=== PATIENT | female | born 1935 | race Caucasian/White ===

== ENCOUNTER 2020-01-05 16:31 | Emergency (ER) | payer OTHER, MEDICARE ==
[2020-01-05 18:02] LABS: Absolute Lymphocytes (CBC) 1.8 K/uL (0.7-4.9); Basophils % 4.3 % (0-1.3); Hematocrit 19.9 % (36.0-45.0); Lymphocytes % 21.9 % (15.3-44.8); MPV 8.6 fL (7.6-11.3); RBC Red Blood Cell Count 2.61 M/uL (3.86-4.86)
[2020-01-05 18:06] LABS: Protime INR 1.05
[2020-01-05 18:14] LABS: Potassium 4.1 mmol/L (3.5-5.1)
--- NOTE | 2020-01-05 18:41 | EDPHYS ---
Physician Documentation [facility] Name: Kiana Walters Age: 84 yrs Sex: Female : 1935 Arrival Date: 01/05/2020 Time: 16:32 Bed 25 Private MD: ED Physician Rey Matthews HPI: 01/04 17:15 This 84 yrs old Female presents to ER via Wheelchair with complaints of Low rn Blood Count. 17:[address] Crawley for low hemoglobin, states followed by hematology for rn platelet problem, takes hydroxyurea, reports a couple of weeks of dyspnea on exertion, fatigue, and decreased energy. No blood in stool or dark stool. No recent change in medication. . Historical: - Allergies: 16:57 Codeine; em 16:57 Demerol; em 16:57 PENICILLINS; em - PMHx: 16:57 Atrial Fib; Cataracts; High Cholesterol; high platelet levels; Hypertension; em Hypothyroidism; liver fibrosis; sciatic pain; - PSHx: 16:57 Adenoids; Tonsillectomy; Appendectomy; Cholecystectomy; Hysterectomy; neck surgery; em carotid artery stent; knee replacement; cataracts; - Immunization history:: Adult Immunizations up to date. - Social history:: Smoking status: Patient denies any tobacco usage or history of. - Family history:: not pertinent. - Hospitalizations: : No recent hospitalization is reported. ROS: 17:15 Constitutional: Negative for fever, chills, and weight loss, Eyes: Negative for injury, rn pain, redness, and discharge, Neck: Negative for injury, pain, and swelling, Cardiovascular: Negative for chest pain, palpitations, and edema, Respiratory: Negative for cough, wheezing, and pleuritic chest pain, Abdomen/GI: Negative for abdominal pain, nausea, vomiting, diarrhea, and constipation, Back: Negative for injury and pain, MS/Extremity: Negative for injury and deformity, Skin: Negative for injury, rash, and discoloration, Neuro: Negative for headache, numbness, tingling, and seizure. Exam: 17:15 Constitutional: This is a well developed, well nourished patient who is awake, alert, rn and in no acute distress. Head/Face: Normocephalic, atraumatic. Eyes: Pale conjunctivae Cardiovascular: Regular rate and rhythm. No pulse deficits. Respiratory: Speaking full sentences. No increased work of breathing, no retractions or nasal flaring. Abdomen/GI: soft, non-tender Skin: Warm, dry MS/ Extremity: Pulses equal, no cyanosis. Neurovascular intact. Full, normal range of motion. Equal circumference. Neuro: Awake and alert, GCS 15 Vital Signs: 16:52 BP 134 / 62; Pulse 99; Resp 18; Temp 98.9(O); Pulse Ox 98% on R/A; Weight 78.93 kg; em Height 5 ft. 6 in. (167.64 cm); Pain 0/10; 17:30 BP 148 / 71; Pulse 90; Resp 18; Temp 98.3(TE); Pulse Ox 99% on R/A; Pain 0/10; ks7 18:28 BP 152 / 83; Pulse 91; Resp 18; Temp 98.3(TE); Pulse Ox 97% on R/A; Pain 0/10; ks7 19:11 BP 166 / 90; Pulse 96; Resp 18; Temp 98.2(TE); Pulse Ox 99% on R/A; Pain 0/10; ks7 19:36 BP 169 / 80; Pulse 95; Resp 18; Temp 98.2(TE); Pulse Ox 100% ; Pain 0/10; ks7 20:00 BP 170 / 86; Pulse 95; Resp 18; Temp 98.3(TE); Pulse Ox 98% on R/A; Pain 0/10; ks7 21:11 BP 148 / 69; Pulse 103; Resp 18; Temp 99.1(TE); Pulse Ox 100% on R/A; Pain 0/10; ks7 21:17 BP 161 / 72; Pulse 95; Resp 18; Temp 98.9(TE); Pulse Ox 100% on R/A; Pain 0/10; ks7 21:23 BP 159 / 81; Pulse 93; Resp 17; Temp 98.2(TE); Pulse Ox 100% on R/A; Pain 0/10; ks7 21:28 BP 158 / 72; Pulse 91; Resp 15; Temp 98.1(TE); Pulse Ox 100% on R/A; Pain 0/10; ks7 22:06 BP 171 / 76; Pulse 88; Resp 16; Temp 98.6(TE); Pulse Ox 99% on R/A; Pain 0/10; ks7 22:30 BP 160 / 79; Pulse 86; Resp 16; Temp 98.6(TE); Pulse Ox 97% on R/A; Pain 0/10; ks7 22:48 BP 133 / 61; Pulse 86; Resp 18; Temp 98.2(TE); Pulse Ox 99% on R/A; Pain 0/10; ks7 16:52 Body Mass Index 28.08 (78.93 kg, 167.64 cm) em 21:11 initial vitals pre transfusion start ks7 21:17 PRBC infusing ks7 21:23 PRBC infusing, no s/s of infusion reaction ks7 21:28 PRBC infusing. no s/s of adverse reaction. Infusion rate increased to 150 ml/hr ks7 MDM: 17:03 Patient medically screened. rn 18:38 ED course: Pt with hemoccult + stool, spoke with Dr. Crawley, states wants patient rn admitted for further anemia w/u and to rule out bleeding given iron deficiency anemia, and thinks hydroxyurea potentiating the anemia, sees dr li but have called several times including home phone and no answer. Will have to transfer given hemoccult + stool and low hemoglobin with symptomatic anemia. . 19:37 Data reviewed: vital signs, nurses notes, lab test result(s), EKG. Data interpreted: jr8 Pulse oximetry: on room air is 100 %. Interpretation: normal. Counseling: I had a detailed discussion with the patient and/or guardian regarding: the historical points, exam findings, and any diagnostic results supporting the discharge/admit diagnosis, lab results, the need to transfer to another facility, [facility] does not immediately have the required specialist. ED course: Talked to a Dr. Mares at [facility] who accepted patient . 01/04 17:13 Order name: CBC with Diff rn 01/04 17:13 Order name: Basic Metabolic Panel; Complete Time: 18:23 rn 01/04 17:13 Order name: Type And Screen rn 01/04 17:13 Order name: PT-INR; Complete Time: 18:57 rn 01/04 17:13 Order name: Ptt, Activated; Complete Time: 18:57 rn 01/04 17:13 Order name: IV Start; Complete Time: 17:59 rn 01/04 18:45 Order name: Bb Add On ss 01/04 18:59 Order name: Packed RBCs (Additional Unit) EDMD 01/04 22:23 Order name: Manual Differential EDMD Administered Medications: No medications were administered Point of Care Testing: Guaiac: 18:38 Stool Guaiac: Positive; Stool Hemoccult Control: Pass; rn Disposition: 01/05 07:07 Co-signature as Attending Physician, Rey Matthews MD. rn Disposition: 01/05/20 18:[address] [facility]. Diagnosis are Anemia, unspecified, Gastrintestinal bleed. - Reason for transfer: Higher level of care. - Accepting physician is . - Condition is Stable. - Problem is an ongoing problem. - Symptoms are unchanged. Signatures: Dispatcher [employer] [facility] Melchor Downey RN RN em Nieto, Roman, MD MD rn Roszak, Josh, PA PA jr8 Brooklyn Saha RN RN ks7 Corrections: (The following items were deleted from the chart) 01/04 22: 18:19 CBC Smear Scan ordered. EDMD EDMD 23:01 18:40 01/05/2020 18:[address] [facility]. ks7 Diagnosis is Anemia, unspecified; Gastrintestinal bleed. Reason for transfer: Higher level of care. Accepting physician is . Condition is Stable. Problem is an ongoing problem. Symptoms are unchanged. rn
--- NOTE | 2020-01-05 18:41 | ER ---
Nurse's Notes [facility] Name: Kiana Walters Age: 84 yrs Sex: Female : 1935 Arrival Date: 01/05/2020 Time: 16:32 Bed 25 Private MD: Diagnosis: Anemia, unspecified;Gastrintestinal bleed Presentation: 01/04 16:52 Chief complaint: Patient states: cancer doctor called and told pt to come to the ER for em low blood count, to be admitted for blood transfusions, HGB of 5, reports shortness of breath, weak, and no energy. Coronavirus screen: Patient denies a cough. Patient reports shortness of breath or difficulty breathing. Patient denies measured and/or subjective temperature greater than 100.4F prior to today's visit. Patient denies travel on a cruise ship or to a country the [facility] currently lists as an affected area. Patient denies contact with known and/or suspected case of COVID-19. Ebola Screen: Patient negative for fever greater than or equal to 101.5 degrees Fahrenheit, and additional compatible Ebola Virus Disease symptoms Patient denies exposure to infectious person. Patient denies travel to an Ebola-affected area in the 21 days before illness onset. No symptoms or risks identified at this time. Initial Sepsis Screen: Does the patient meet any 2 criteria? HR > 90 bpm. No. Patient's initial sepsis screen is negative. Does the patient have a suspected source of infection? No. Patient's initial sepsis screen is negative. Risk Assessment: Do you want to hurt yourself or someone else? Patient reports no desire to harm self or others. Onset of symptoms was January 05, 2020. 16:52 Method Of Arrival: Wheelchair em 16:52 Acuity: EZRA 3 em Triage Assessment: 17:30 General: Appears in no apparent distress. pt sent in by PCP for Low H/H. pt denies ks7 dizziness at this time. Behavior is calm, cooperative. 17:57 Pain: Denies pain. ks7 Historical: - Allergies: 16:57 Codeine; em 16:57 Demerol; em 16:57 PENICILLINS; em - PMHx: 16:57 Atrial Fib; Cataracts; High Cholesterol; high platelet levels; Hypertension; em Hypothyroidism; liver fibrosis; sciatic pain; - PSHx: 16:57 Adenoids; Tonsillectomy; Appendectomy; Cholecystectomy; Hysterectomy; neck surgery; em carotid artery stent; knee replacement; cataracts; - Immunization history:: Adult Immunizations up to date. - Social history:: Smoking status: Patient denies any tobacco usage or history of. - Family history:: not pertinent. - Hospitalizations: : No recent hospitalization is reported. Screenin:09 Abuse screen: Denies threats or abuse. Denies injuries from another. Nutritional ks7 screening: No deficits noted. Tuberculosis screening: No symptoms or risk factors identified. Fall Risk Fall in past 12 months (25 points). Secondary diagnosis (15 points) IV access (20 points). Ambulatory Aid- Crutches/Cane/Walker (15 pts). Gait- Normal/Bed Rest/Wheelchair (0 pts) Mental Status- Oriented to own ability (0 pts). Total Lynch Fall Scale indicates High Risk Score (45 or more points). Fall prevention measures have been instituted. Side Rails Up X 2 Placed Close to Nursing Station Frequent Obs/Assessments Occuring As available patient and family educated on Fall Prevention Program and Strategies. Assessment: 18:09 General: Appears pt comes in d/t pcp notifiying pt of abnormal labs. H/H low. pt denies ks7 dizziness or pain, no s/s of distress. 19:10 Reassessment: Patient is alert, oriented x 3, equal unlabored respirations, skin ks7 warm/dry/pink. talking on phone with daughter updating on plan of care to transfer to [facility]. 20:13 Reassessment: Patient and/or family updated on plan of care and expected duration. Pain ks7 level reassessed. Patient is alert, oriented x 3, equal unlabored respirations, skin warm/dry/pink. 21:36 Reassessment: Patient is alert, oriented x 3, equal unlabored respirations, skin ks7 warm/dry/pink. Patient denies pain at this time. 22:58 Reassessment: report given to medics for transport to [facility]. ks7 Vital Signs: 16:52 BP 134 / 62; Pulse 99; Resp 18; Temp 98.9(O); Pulse Ox 98% on R/A; Weight 78.93 kg; em Height 5 ft. 6 in. (167.64 cm); Pain 0/10; 17:30 BP 148 / 71; Pulse 90; Resp 18; Temp 98.3(TE); Pulse Ox 99% on R/A; Pain 0/10; ks7 18:28 BP 152 / 83; Pulse 91; Resp 18; Temp 98.3(TE); Pulse Ox 97% on R/A; Pain 0/10; ks7 19:11 BP 166 / 90; Pulse 96; Resp 18; Temp 98.2(TE); Pulse Ox 99% on R/A; Pain 0/10; ks7 19:36 BP 169 / 80; Pulse 95; Resp 18; Temp 98.2(TE); Pulse Ox 100% ; Pain 0/10; ks7 20:00 BP 170 / 86; Pulse 95; Resp 18; Temp 98.3(TE); Pulse Ox 98% on R/A; Pain 0/10; ks7 21:11 BP 148 / 69; Pulse 103; Resp 18; Temp 99.1(TE); Pulse Ox 100% on R/A; Pain 0/10; ks7 21:17 BP 161 / 72; Pulse 95; Resp 18; Temp 98.9(TE); Pulse Ox 100% on R/A; Pain 0/10; ks7 21:23 BP 159 / 81; Pulse 93; Resp 17; Temp 98.2(TE); Pulse Ox 100% on R/A; Pain 0/10; ks7 21:28 BP 158 / 72; Pulse 91; Resp 15; Temp 98.1(TE); Pulse Ox 100% on R/A; Pain 0/10; ks7 22:06 BP 171 / 76; Pulse 88; Resp 16; Temp 98.6(TE); Pulse Ox 99% on R/A; Pain 0/10; ks7 22:30 BP 160 / 79; Pulse 86; Resp 16; Temp 98.6(TE); Pulse Ox 97% on R/A; Pain 0/10; ks7 22:48 BP 133 / 61; Pulse 86; Resp 18; Temp 98.2(TE); Pulse Ox 99% on R/A; Pain 0/10; ks7 16:52 Body Mass Index 28.08 (78.93 kg, 167.64 cm) em 21:11 initial vitals pre transfusion start ks7 21:17 PRBC infusing ks7 21:23 PRBC infusing, no s/s of infusion reaction ks7 21:28 PRBC infusing. no s/s of adverse reaction. Infusion rate increased to 150 ml/hr ks7 Vitals: 19:36 Cardiac Rhythm Assessment Regular. ks7 ED Course: 16:32 Patient arrived in ED. bp1 16:56 Triage completed. em 16:57 Arm band placed on. em 17:03 Rey Matthews MD is Attending Physician. rn 17:19 Brooklyn Saha RN is Primary Nurse. ks7 17:35 No apparent distress. ks7 17:35 Patient has correct armband on for positive identification. Placed in gown. Bed in low ks7 position. Call light in reach. Side rails up X2. 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 ks7 17:59 Ptt, Activated Sent. ks7 17:59 PT-INR Sent. ks7 17:59 Type And Screen Sent. ks7 17:59 Basic Metabolic Panel Sent. ks7 17:59 CBC with Diff Sent. ks7 17:59 Inserted saline lock: 20 gauge in right antecubital area, using aseptic technique. ks7 Blood collected. 18:00 Inserted saline lock: 20 gauge in right wrist, using aseptic technique. ks7 18:28 ED physician to see patient. ED MD discussed plan of care with pt. attempting to call ks7 pt GI MD. if we can't get hold of MD pt will need to transfer to [place]. 18:52 pt ambulated with cane to bathroom, steady on feet. ks7 18:54 Bb Add On Sent. ks7 19:10 ambulated back to room with cane, steady on feet. ks7 19:37 Resting quietly. talking on the phone talking to her friends and family updating on ks7 plan of care. 19:52 transfer Awaiting: pt will transfer after 1 unit of PRBC infuses. waiting for blood ks7 bank to prepare PRBC's. 20:19 pt ambulated to bathroom and back to bed with cane. steady on feet, denies dizziness. ks7 dyspnea on exertion. 20:26 pt eating turkey sandwich, fruit and water. denies nausea. ks7 20:30 Diet: Patient given snack. ks7 22:08 pt ambulated to bathroom with cane. steady on feet, no s/s of distress, denies ks7 dizziness. sob with walking. 22:58 Report given to EMS transport. Report given to Vicky GUERRA at [facility]. all questions ks7 answered. 23:00 Patient transferred, IV remains in place. ks7 23:01 Packed RBCs (Additional Unit) Sent. ks7 Administered Medications: No medications were administered Point of Care Testing: Guaiac: 18:38 Stool Guaiac: Positive; Stool Hemoccult Control: Pass; rn Outcome: 18:40 ER care complete, transfer ordered by . rn 22:58 Transferred by ground EMS to [facility]. ks7 22:58 Condition: good 22:58 Discharge instructions given to patient, Instructed on the need for transfer, Demonstrated understanding of instructions. 23:01 Patient left the ED. ks7 Signatures: Melchor Downey RN RN em Nieto, Roman, MD MD rn Paniauga, Brittany bp1 Songcuan, Kathleen, RN RN ksYoni Corrections: (The following items were deleted from the chart) 20:24 20:00 BP 145 / 73; Pulse 75bpm; Resp 18bpm; Pulse Ox 94%; Temp 100.3F Temporal; Pain ks7 0/10; ks7 21:36 21:17 BP 159 / 81; Pulse 93bpm; Resp 17bpm; Pulse Ox 100% RA; Temp 98.2F Temporal; Pain ks7 0/10; PRBC infusing, no s/s of infusion reaction; ks7 22:23 18:55 CBC Smear Scan drawn and sent. ks7 EDMS
--- OUTSIDE RECORDS SUMMARY | 2020-01-05 18:53 | XMS REPORT | Continuity of Care Document ---
:1935 Author Organization [facility] t Address [address] [place] [address] Care Team Providers Name Role Phone Unavailable Unavailable Unavailable Problems Condition Condition Condition Status Onset Resolution Last Treating Co mments Source Name Details Category Date Date Treatment Clinician Date Urinary Urinary Diagnosis [facility] infection Lee dominique without without l hematuria, hematuria, Ou tpati site site ent unspecifie unspecifie Cl inics d d Urge Urge Diagnosis Active [facility] incontinen incontinen Alejandra kes - ce ce [facility] Allergies, Adverse Reactions, Alerts Allergy Allergy Status Severity Reaction(s) Onset Inactive Treating Comm ents Source Name Type Date Date Clinician PCN Adverse Active Info Not [facility] Reaction Available [facility] - [facility] Clinics Demerol Adverse Active Info Not [facility] Reaction Available [facility] - [facility] Clinics Medications Ordered Filled Start Stop Current Ordering Indication Dosage Frequency Signature Comments Components Source Medication Medication Date Date Medication? Clinician (SIG) Name Name Estradiol Estradiol Yes Lulu as [facility] [place] directed [facility] - 00:[facility]: [facility] 00 [facility] Multaq Multaq Yes Lulu [address] [facility] [place] with meals [facility] Levoxyl Levoxyl Yes Lulu [address] [facility] [place] on an [facility] - empty [facility]oria stomach in l the Outpati morning ent Clinics Amlodipine Amlodipine Yes Lulu [address] [facility] Besylate Besylate [place] [facility] - [facility] Lumigan Lumigan Yes Lulu [address] [facility] [place] into [facility] - affected [facility]oria eye in the l evening [facility] Plavix Plavix Yes Lulu [address] [facility] [place] [facility] Diovan HCT Diovan HCT Yes Lulu [address] [facility] [place] [facility] Gabapentin Gabapentin Yes Lulu [address] [facility] [place] [facility] T87-Vloizi Q19-Xnopat Yes Lulu as [facility] [place] [facility] Hydroxyurea Hydroxyurea Yes Lulu as [facility] [place] directed [facility] Melatonin Melatonin Yes Lulu as [facility] [place] directed [facility] CoQ-10 CoQ-10 Yes [facility]ulu [facility] with [facility] - meal [facility] Clin[facility] Aspirin 81 Aspirin 81 Yes Lulu [address] [facility] [place] [facility] Metoprolol Metoprolol Yes Lulu [address] Succinate Succinate [place] [facility] - [facility] Outpat[facility] ent Clinics Procedures This patient has no known procedures. Encounters Start End Encounter Admission Attending Care Care Encounter Source Date/Time Date/Time Type Type Clinicians Facility Department ID 2019-07-10 2019-07-10 Outpatient Bart Meredith [id number] [facility] 10:00:00 10:00:00 t Specialty/U Alejandra kes - Specialty rology [facility]rology [facility] l Clinic Outpati ent Clinics 2018-12-23 2018-12-23 Outpatient Bart Arriagat [id number] [facility] 10:15:00 10:15:00 t Specialty/U Alejandra kes - Specialty rology Mem[facility] /Urology Clinic l Clinic Outpati ent Clinics 2018-09-19 2018-09-19 Outpatient Bart [place] [id number] [facility] 10:30:00 10:30:00 t Specialty/U Alejandra kes - Specialty rology Memori a /Urology Clinic l Clinic Outpati ent Clinics 2018-08-22 2018-08-22 Outpatient Bart [place] [id number] [facility] 10:15:00 10:15:00 t Specialty/U Alejandra kes - Specialty rology Memori a /Urology Clinic l Clinic Outpati ent Clinics 2018-08-15 2018-08-15 Outpatient Bart [place] [id number] [facility] 10:15:00 10:15:00 t Specialty/U Alejandra kes - Specialty rology Memori a /Urology Clinic l Clinic Outpati ent Clinics Results This patient has no known results.
[2020-01-05] MEDS ORDERED: NA CHLORIDE 0.9% 250 ML ONE (20:52)
[2020-01-05 22:26] LABS: Blood Morphology Comment NOTED (NOT SEEN); Hypochromasia 1+; Platelet Estimate ADEQ; Polychromasia 2+
[2020-01-06 09:49] VITALS: BP 133/61; TEMP 98.2; O2SAT 99
== END 2020-01-05 23:01 | disposition short-term general hospital (02) ==
LOC: ER 16:31
DX: D64.9 Anemia, unspecified (principal); K92.2 Gastrointestinal hemorrhage, unspecified; Z88.6 Allergy status to analgesic agent; Z88.0 Allergy status to penicillin
CPT/HCPCS: 85025; 80048; 36415; 86900; 86850; 85610; 86901; 85730; 86922 ×2; 99285; P9016; J7050

== ENCOUNTER 2020-07-14 08:11 | Day surgery (SDC) | payer OTHER, MEDICARE ==
--- OUTSIDE RECORDS SUMMARY | 2020-07-14 08:44 | XMS REPORT | Clinical Summary ---
:1935 Author Organization [facility] Address [address] [place] [address] Care Team Providers Name Role Phone Pcp, Primary Care Provider Unavailable Allergies Active Allergy Reactions Severity Noted Date Comments Meperidine 01/06/2020 Penicillins 01/06/2020 Lidocaine Hcl 01/06/2020 Medications Medication Sig Dispensed Refills Start Date End Date Status clopidogreL Take 75 mg by 0 Acti ve (PLAVIX) 75 mg mouth daily. tablet valsartan-hydrochl Take 1 tablet 0 Active orothiazide by mouth (DIOVAN-HCT) daily. 320-12.5 mg per tablet metoprolol Take 25 mg by 0 Activ e tartrate mouth 2 (two) (LOPRESSOR) 25 MG times daily. tablet dronedarone Take 400 mg by 0 Act raji (MULTAQ) 400 mg mouth 2 (two) tablet times daily. levothyroxine Take 25 mcg by 0 A ctive (SYNTHROID, mouth Every LEVOTHROID) 25 MCG morning on an tablet empty stomach. amLODIPine Take 5 mg by 0 Active (NORVASC) 5 MG mouth daily. tablet hydroxyurea Take 100 mg by 0 Act raji (DROXIA) 500 mg mouth daily. capsule gabapentin Take 300 mg by 0 Acti ve (NEURONTIN) 300 MG mouth nightly. capsule pitavastatin Take 2 mg by 0 Acti ve calcium (LIVALO) 2 mouth daily. mg Tab tablet cyanocobalamin, Place 1 tablet 0 Active vitamin B-12, under the 2,500 mcg Subl tongue daily. aspirin 81 MG EC Take 81 mg by 0 Active tablet mouth daily. dorzolamide-timolo Place 1 drop 0 Active L (COSOPT) into the left 22.3-6.8 mg/mL eye 2 (two) ophthalmic times daily. solution bimatoprost Place 1 drop 0 Activ e (LUMIGAN) 0.03 % into both eyes ophthalmic drops nightly. MELATONIN ORAL Take by mouth 0 A ctive nightly. coenzyme Q10 (CO Take by mouth 0 Active Q-10) 300 mg Cap daily. beta-carotene,A,-v Take by mouth 0 Active its C,E/mins daily. (OCUVITE ORAL) pantoprazole Take 1 tablet 60 tablet 1 01/07/2020 Ac tive (PROTONIX) 40 MG (40 mg total) tablet by mouth 2 (two) times daily. ferrous sulfate Take 1 tablet 60 tablet 2 01/07/2020 Active 325 (65 FE) MG EC (325 mg total) 1 tablet by mouth 2 (two) times daily with breakfast and dinner. pantoprazole Take 1 tablet 60 tablet 0 01/07/2020 Di scontinued (PROTONIX) 40 MG (40 mg total) 0 (Reorder) tablet by mouth 2 (two) times daily. ferrous sulfate Take 1 tablet 60 tablet 2 01/07/2020 Discontinued 325 (65 FE) MG EC (325 mg total) 0 (Reorder) tablet by mouth 2 (two) times daily with breakfast and dinner. ferrous sulfate Take 1 tablet 60 tablet 2 01/07/2020 Discontinued 325 (65 FE) MG EC (325 mg total) 0 (Reorder) tablet by mouth 2 (two) times daily with breakfast and dinner. pantoprazole Take 1 tablet 60 tablet 1 01/07/2020 Di scontinued (PROTONIX) 40 MG (40 mg total) 0 (Reorder) tablet by mouth 2 (two) times daily. Active Problems Problem Noted Date Gastrointestinal hemorrhage with melena 01/06/2020 A-fib 01/06/2020 Anemia 01/06/2020 Thrombocytosis 01/06/2020 Encounters Date Type Specialty Care Team Description 01/07/2020 Anesthesia Event Gastroenterology Eduardo Quintana MD Sam, Briseida Miles MD 01/07/2020 Surgery Gastroenterology Юлия Barraza [facility] Roa MD 01/07/2020 Travel 01/06/2020 [facility] Internal [facility] Chronic a trial fibrillation (HCC); - Encounter Medicine , MD Miguel Gastrointestinal hemorrhage with melena; 01/07/2020 Judith Lau Thrombocytosis (HCC); MD Marie Iron deficiency anemia due to chronic bl ood loss Ariella Stringer MD Henderson, Edith Ifeoma, MD 01/06/2020 Travel 01/05/2020 Telephone Gastroenterology Юлия Barraza MD after 07/14/2019 Social History Tobacco Use Types Packs/Day Years Used Date Never Smoker Smokeless Tobacco: Never Used Alcohol Use Drinks/Week oz/Week Comments No Alcohol Habits Answer Date Recorded How often do you have a drink containing alcohol? Never 01/07/2020 How many drinks containing alcohol do you have on a typical Not asked day when you are drinking? How often do you have six or more drinks on one occasion? No t asked Sex Assigned at Date Recorded Not on file Last Filed Vital Signs Vital Sign Reading Time Taken Comments Blood Pressure 113/56 01/07/2020 3:15 PM CDT Pulse 77 01/07/2020 3:15 PM CDT Temperature 36 C (96.8 F) 01/07/2020 3:15 PM CDT Respiratory Rate 18 01/07/2020 3:15 PM CDT Oxygen Saturation 96% 01/07/2020 3:15 PM CDT Inhaled Oxygen Concentration - - Weight 79.5 kg (175 lb 4.3 oz) 01/06/2020 2:07 PM CDT Height 167.6 cm (5' 6") 01/06/2020 2:07 PM CDT Body Mass Index 28.29 01/06/2020 2:07 PM CDT Plan of Treatment Health Maintenance Due Date Last Done Comments PNEUMOCOCCAL 65+ YRS (1 of 1 - [id number]) 1999 MEDICARE ANNUAL WELLNESS (YEAR 2 or FIRST YEAR if no 02/18/2000 IPPE) INFLUENZA VACCINE (#1) 2020 Procedures Procedure Name Priority Date/Time Associated Comments Diagnosis RHYTHM STRIP - SCAN 01/09/2020 2:52 PM CDT RHYTHM STRIP - SCAN 01/09/2020 1:40 PM CDT TRANSFUSION SERVICE 01/08/2020 6:03 REPORT - SCAN PM CDT PREPARE LEUKO-REDUCED Routine 01/07/2020 11:54 Re sults for this RBC PM CDT procedure are i n the results section. TRANSFUSION SERVICE 01/07/2020 6:04 REPORT - SCAN PM CDT POCT-GLUCOSE METER Routine 01/07/2020 12:00 Resul ts for this PM CDT procedure are i n the results section. REPORT OF PROCEDURE - 01/07/2020 9:17 ENDOSCOPY URL AM CDT REPORT OF PROCEDURE - 01/07/2020 9:08 ENDOSCOPY URL AM CDT TISSUE EXAM AP Routine 01/07/2020 8:32 Results for this AM CDT procedure are i n the results section. COLONOSCOPY 01/07/2020 8:04 Other iron AM CDT deficiency anemia UPPER ENDOSCOPY 01/07/2020 8:04 Other iron AM CDT deficiency anemia POCT-GLUCOSE METER Routine 01/07/2020 5:48 Resul ts for this AM CDT procedure are i n the results section. CBC W/PLT COUNT & Routine 01/07/2020 5:04 Result s for this AUTO DIFFERENTIAL AM CDT procedure are in the results section. TSH/FREE T4 IF Routine 01/07/2020 5:04 Results f or this INDICATED AM CDT procedure are i n the results section. CBC W/PLT COUNT & Routine 01/07/2020 5:04 Result s for this AUTO DIFFERENTIAL AM CDT procedure are in the results section. BASIC METABOLIC PANEL Routine 01/07/2020 5:04 Re sults for this (7) AM CDT procedure are i n the results section. POCT-GLUCOSE METER Routine 01/07/2020 12:12 Resul ts for this AM CDT procedure are i n the results section. POCT-GLUCOSE METER Routine 01/06/2020 6:36 Resul ts for this PM CDT procedure are i n the results section. HEMOGLOBIN AND Routine 01/06/2020 4:56 Results f or this HEMATOCRIT PM CDT procedure are i n the results section. TRANSFUSE Routine 01/06/2020 3:53 LEUKO-REDUCED RED PM CDT BLOOD CELLS SARS-COV2/RT-PCR STAT 01/06/2020 9:30 Results for this ([facility]) AM CDT procedure are in the results section. ABORH, MANUAL STAT 01/06/2020 9:28 Results fo r this AM CDT procedure are i n the results section. ABORH, MANUAL Routine 01/06/2020 8:34 Results fo r this AM CDT procedure are i n the results section. TYPE AND SCREEN, Routine 01/06/2020 8:34 Results for this AUTOMATED AM CDT procedure are i n the results section. VITAMIN B12 AND Routine 01/06/2020 8:34 Results for this FOLATE AM CDT procedure are i n the results section. IRON, TIBC, % SAT. Routine 01/06/2020 8:34 Resul ts for this (WITHOUT FERRITIN) AM CDT procedure are in the results section. FERRITIN Routine 01/06/2020 8:34 Results for this AM CDT procedure are i n the results section. CBC W/PLT COUNT & Routine 01/06/2020 4:47 Result s for this AUTO DIFFERENTIAL AM CDT procedure are in the results section. CBC W/PLT COUNT & Routine 01/06/2020 4:47 Result s for this AUTO DIFFERENTIAL AM CDT procedure are in the results section. MAGNESIUM Routine 01/06/2020 4:47 Results for this AM CDT procedure are i n the results section. PROTHROMBIN TIME/INR Routine 01/06/2020 4:47 Res ults for this AM CDT procedure are i n the results section. HEPATIC FUNCTION Routine 01/06/2020 4:47 Results for this PANEL AM CDT procedure are i n the results section. BASIC METABOLIC PANEL Routine 01/06/2020 4:47 Re sults for this (7) AM CDT procedure are i n the results section. after 07/14/2019 Results RHYTHM STRIP - SCAN (01/09/2020 2:52 PM CDT)Only the most recent of2 results within the time period is included. Narrative Performed At This result has an attachment that is no t available. TRANSFUSION SERVICE REPORT - SCAN (01/08/2020 6:03 PM CDT)Only the most recent of2 resultswithin the time period is included. Narrative Performed At This result has an attachment that is no t available. Prepare Leuko-Red RBC (01/07/2020 11:54 PM CDT) Pathologist Sig nature CROSSMATCH COMPATIBLE SAFETRACE TX Unit ABO B Pos SAFETRACE TX UNIT NUMBER [id number] SAFETRACE TX Status TX_TIMEINCHART SAFETRACE TX Blood Bank Product RED BLOOD CELLS SAFETRACE TX PRODUCT CODE [id number] SAFETRACE TX Specimen Other Performing Organization Address City/State[facility] Phone Number SAFETRACE TX POC-Glucose meter (01/07/2020 12:00 PM CDT)Only the most recent of4 results within the time period is included. POC-Glucose Meter 130 (H)Comment: 70 - 110 mg/dL RC ALEXANDER : TESTED AT [facility] [address] [facility], [address]: Fence Erector Supervisor/Technic kassie ID = [id number] for JAN PACHECO Specimen Blood Performing Organization Address City/State/Zipcode Phone Number RC ALEXANDER [address] [address] CENTER REPORT OF PROCEDURE - ENDOSCOPY URL (01/07/2020 9:17 AM CDT) Narrative Performed At This result has an attachment that is no t available. REPORT OF PROCEDURE - ENDOSCOPY URL (01/07/2020 9:08 AM CDT) Narrative Performed At This result has an attachment that is no t available. Tissue Exam (01/07/2020 8:32 AM CDT) Case Report Surgical Pathology Report Case: [id number] [facility] Authorizing Provider: Юлия Barraza MD Collected: 01/07/2020 08:32 AM [facility] Ordering Location: [address] Received: 01/07/2020 01:46 PM [facility] Service Pathologist: Isai Silva MD Specimens: A) - Stomach, Antrum, r/o H. Pylori atrophic gastritis B) - Biop sy, Gastric, body,r/o H. Pylori atrophic gastritis DIAGNOSIS PART A GASTRIC ANTRUM BIOPSY: RC THIBODEAUX Electronically ANTRAL MUCOSA WITH NONSPECIFIC REACTIVE GASTROPATHY AND INTESTINAL METAPLASIA. [facility] signed by Ricardo, NEGATIVE FOR DYSPLASIA OR INVASIVE CARCINOMA. [facility] MD VASQUEZ DaleTHIN STARRY STAIN FOR HELICOBACTER IS NEGATIVE. on 01/09/2020 at 9:44 AM PART B GASTRIC BODY BIOPSY: GASTRIC MUCOSA WITH INTESTINAL METAPLASIA AND NEUROEND OCRINE HYPERPLASIA. NEGATIVE FOR DYSPLASIA OR INVASIVE CARCINOMA. WARTHIN STARRY STAIN FOR HELICOBACTER IS NEGATIVE. SEE DIAGNOSTIC COMMENT. Signing Pathologist Direct Phone Line: COMMENT Immunohistochemical studies for gastrin performed on block B1 demonstrates scattered positivity. Neurodendocrine hyperplasia is identified by synaptophysin immunostain. Immunostains for helicobacter per [facility] formed on blocks A1 and B1 a re negative. Gastrin immunostain is negative on block A1 (antral biopsy). Synapthophysin immunostain performed on block A1 does not demonstrate neuroendocrine hyperplasia. 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 Correlation with endoscopic findings is required. CPT Code(s) 86503v0, 52256y1, [facility] 66906i0, 53360m2 [facility] CLINICAL HISTORY Preop diagnosis: Iron deficiency anemia [facility] Procedure: upper endoscopy, biopsy [facility] SPECIMEN SOURCE A. Stomach, antrum, rule [facility] out H. Pylori, atrophic [facility] gastritis; B. [facility] body biopsy, rule out H. Pylori, atrophic gastritis GROSS DESCRIPTION A. Received in formalin labe led with the patient's name, accession number and "stomach antrum" is a joyce soft tissue fragment measuring 0.4 x 0.3 x 0.2 cm. The specimen is entirely submitted as A1. [facility] B. Received in formalin labe led with the patient's name, accession number and "gastric biopsy" are two fragments of joyce soft tissue measuring in aggregate 0.4 x 0.2 x 0.2 cm. The specimen entirely submitted as B1. /[facility] MICROSCOPIC Performed. [facility] SPECIAL STUDIES The interpretation of this c ase included the use of immunohistochemistry or special stains. [facility] Block a1- warthin starry, synaptophysin, gastrin, dago [facility] Block b1- warthin starry, synaptophysin, gastrin, [facility] Control Slides Examined: In -house known positive controls were evaluated along with the test tissue. These control slides run alongside of the patients sample show appropriate staining. Internal posit raji and negative controls when available are evaluated Immunohistochemistry technic al testing was performed at [facility], Pathology Laboratory where it was developed and its performance characteristics were determined. It has not be en cleared or approved by [facility] U.S. Food and Drug Administration. The FDA has determined that such clearance or approval is not necessary. The test is used for clinical purposes. It should not be regarde d as investigational or for research. This laboratory is certified under the Clinical Laboratory Improvement Amendments of 1988 (CLIA-88) as qualified to perform high complexity clinical laboratory testing. Gross assessment [facility] was performed at [facility] Pathology, [address] [place] [id number], Technical Formerly named [facility] component was [facility] performed at [facility], [address] [place] [id number], Professional Formerly named [facility] component was [facility] performed at [address] [address], Specimen Tissue - Pyloric antrum structure (body structure) Tissue specimen (specimen) - Gastric bio psy sample (specimen) Performing Organization Address [facility] Phone Number [address] [phone] CENTER TSH/Free T4 If Indicated (01/07/2020 5:04 AM CDT) Pathologist Sig sophia TSH 2.664 0.350 - 4.940 uIU/mL [facility] Specimen Blood Narrative Performed At Fence Erector Supervisor ID - FLOR [facility] Performing Organization Address [facility] Phone Number [address] [address] CENTER CBC with platelet count + automated diff (01/07/2020 5:04 AM CDT)Only the most recent of2 resultswithin the time period is included. Pathologist Sig nature WBC 5.7 3.5 - 10.5 [facility] K/L [facility] RBC 3.35 (L) 3.93 - 5.22 [facility] M/L [facility] Hemoglobin 8.1 (L) 11.2 - 15.7 [facility] GM/DL [facility] Hematocrit 27.8 (L) 34.1 - 44.9 % [facility] MCV 83.0 79.4 - 94.8 fL [facility] MCH 24.2 (L) 25.6 - 32.2 pg [facility] MCHC 29.1 (L) 32.2 - 35.5 [facility] GM/DL [facility] RDW 17.1 (H) 11.7 - 14.4 % [facility] Platelets 510 (H) 150 - 450 K/CU [facility] MPV 10.7 9.4 - 12.3 fL [facility] nRBC 0 0 - 0 /100 WBC [facility] % Neutros 57 % [facility] % Lymphs 24 % [facility] % Monos 12 % [facility] % Eos 3 % [facility] % Baso 4 % [facility] # Neutros 3.23 1.56 - 6.13 [facility] # Lymphs 1.34 1.18 - 3.74 [facility] # Monos 0.69 (H) 0.24 - 0.36 [facility] # Eos 0.16 0.04 - 0.36 [facility] # Baso 0.22 (H) 0.01 - 0.08 [facility] Immature 0 0 - 1 % [facility] Specimen Blood Performing Organization Address City/State/Zipcode Phone Number [facility] [address] [place] [address] CENTER Basic metabolic panel (01/07/2020 5:04 AM CDT)Only the most recent of2 results within the time period is included. Sodium 137 136 - 145 meq/L [facility] Potassium 4.2 3.5 - 5.1 meq/L [facility] Chloride 105 98 - 107 meq/L [facility] CO2 26 22 - 29 meq/L [facility] BUN 15 7 - 21 mg/dL [facility] Creatinine 0.95 0.57 - 1.25 [facility] mg/dL [facility] Glucose 98 70 - 105 mg/dL [facility] Calcium 9.1 8.4 - 10.2 [facility] mg/dL [facility] EGFR 56Comment: ESTIMATED mL/min/1.[address] [facility] GFR IS NOT m [facility] ACCURATE [place] CREATININE CLEARANCE IN PREDICTING GLOMERULAR FILTRATION RATE. ESTIMATED GFR IS NOT APPLICABLE FOR DIALYSIS PATIENTS. Specimen Blood Narrative Performed At Fence Erector Supervisor ID - BS [facility] Performing Organization Address City/State/Zipcode Phone Number [facility] [address] [place] [address] CENTER Hemoglobin and hematocrit (01/06/2020 4:56 PM CDT) Pathologist Sig nature Hemoglobin 7.9 (L) 11.2 - 15.7 GM/DL [facility] Hematocrit 26.6 (L) 34.1 - 44.9 % [facility] Specimen Blood - Entire left upper arm (body stru cture) Narrative Performed At Fence Erector Supervisor ID - [id number] [facility] Performing Organization Address City/State/Zipcode Phone Number [facility] [address] [place] [address] CENTER Transfuse Leuko-Red RBC (01/06/2020 3:53 PM CDT)SARS-CoV2/RT-PCR (Asymptomatic ONLY) (01/06/2020 9:30 AM CDT) SARS-COV2/RT-PCR Negative Not Detected, RC ALEXANDER Negative, See [facility] external report CENTER for linked test SARS-COV-2 [facility] STEVO ALEXANDER PERFORMING LAB [facility] Specimen Other - Nasopharyngeal wall structure (b carlos structure) Narrative Performed At Negative result for this test determines that RC WAGNERKirk [facility] SARS-CoV-2 RNA was not present in the specimen above the Limit of Detection (LOD). However, Negative results do not preclude SARS-CoV-2 infection and should not be used as the sole basis for treatment or patient management decisions. Negative results must be combined with clinical observations, patient history, and epidemiological information. A false negative result may occur if a specimen is improperly collected, transported or handled. A false negative result should be considered if patient's recent exposures or clinical presentation indicate that COVID-19 (SARS-CoV-2) is likely and diagnostic tests for other causes of illness are negative. Re-testing should be considered in cases of suspected false negatives. The limit of detection for this assay is 800 copies/mL. This SARS CoV-2 test is a real-time RT-PCR test intended for the qualitative detection of nucleic acid from SARS-CoV-2 in a nasopharyngeal swab specimen collected from individuals suspected of COVID-19 by their healthcare provider. This test has not been Food and Drug Administration (FDA) cleared or approved. This is a modified version of an approved Emergency Use Authorization (EUA) and is in the process of review by the FDA. Once authorized by the FDA, the issued EUA will be effective until the declaration that circumstances exist justifying the authorization of the emergency use of in vitro diagnostic tests for detection and/or diagnosis of COVID-19 is terminated under Section 564(b)(2) of the Act or the EUA is revoked under Section 564(g) of the Act. Fact Sheet for Healthcare Providers: https://www.[employer].Machinima/sites/default/files/pro duct/documents/Fact_Sheet_HC_Providers_Lyra_SA RS-CoV-2.pdf Fact Sheet for Healthcare Patients: https://www.[employer].Machinima/sites/default/files/pro duct/documents/Fact_Sheet_Patients_Lyra_SARS-C oV-2.pdf Performing Laboratory: [address] [place] [address] Performing Organization Address [facility] Phone Number [address] [address] CENTER ABORH, manual (01/06/2020 9:28 AM CDT)Only the most recent of2 resultswithin the time period is included. Pathologist Sig nature ABO Grouping B [facility] [place] Rh Factor POS [facility] Specimen Blood Performing Organization Address [facility] Phone Number [address] [address] Type and screen, automated (01/06/2020 8:34 AM CDT) Pathologist Sig [facility] Ab Scrn NEGATIVEComment: [facility] done on echo [facility] Specimen Blood Performing Organization Address [facility] Phone Number [address] [address] Vitamin B12 and Folate (01/06/2020 8:34 AM CDT) Pathologist Sig [facility] Vitamin B12 1,029 (H) 213 - 816 pg/mL [facility] Folate >20.00 >=7.00 ng/mL [facility] Specimen Blood Narrative Performed At Fence Erector Supervisor ID - LM [facility] Performing Organization Address [facility] Phone Number [address] [address] CENTER Iron, TIBC, % sat. (without ferritin) (01/06/2020 8:34 AM CDT) Pathologist Sig nature Iron 18.0 (L) 40.0 - 160.[address] [facility] ug/dL [facility] TIBC 498 (H) 250 - 450 ug/dL [facility] Iron % Saturation 4 (L) 20 - 55 % [facility] Specimen Blood Narrative Performed At Fence Erector Supervisor ID - LM [facility] Performing Organization Address City/State/Zipcode Phone Number [address] [address] CENTER Ferritin (01/06/2020 8:34 AM CDT) Pathologist Sig nature Ferritin 6.72 5.00 - 275.00 ng/mL [facility] Specimen Blood Narrative Performed At Fence Erector Supervisor ID - LM [facility] Performing Organization Address City/[facility] Phone Number [address] [address] CENTER Prothrombin time/INR (01/06/2020 4:47 AM CDT) Pathologist Sig nature Protime 13.8 11.9 - 14.2 seconds [facility] INR 1.1 <=5.9 [facility] Specimen Blood Narrative Performed At Effective 11/13/2018: PT Reference Range [facility] Change New: 11.9-14.2 Previous: 11.7-14.7 RECOMMENDED COUMADIN/WARFARIN INR THERAPY RANGES STANDARD DOSE: 2.0-3.0 Includes: PROPHYLAXIS for venous thrombosis, systemic embolization; TREATMENT for venous thrombosis and/or pulmonary embolus. HIGH RISK: Target INR is 2.5-3.5 for patients wiht mechanical heart valves. Performing Organization Address City/State/[facility] Phone Number [address] [address] CENTER Magnesium (01/06/2020 4:47 AM CDT) Pathologist Sig nature Magnesium 2.2 1.6 - 2.6 mg/dL [facility] Specimen Blood Narrative Performed At Fence Erector Supervisor ID - JAMESON W [facility] Performing Organization Address City/State/Zipcode Phone Number [address] [address] [place] Hepatic function panel (01/06/2020 4:47 AM CDT) Pathologist Sig nature Protein, Total 6.9 6.0 - 8.3 gm/dL [facility] Albumin 4.0 3.5 - 5.0 g/dL [facility] Total Bilirubin 0.3 0.2 - 1.2 mg/dL [facility] Bilirubin, Direct 0.2 0.1 - 0.5 mg/dL [facility] Alkaline Phosphatase 77 40 - 150 U/L [facility] AST 19 5 - 34 U/L [facility] ALT 14 6 - 55 U/L [facility] Specimen Blood Narrative Performed At Fence Erector Supervisor ID - JAMESON Hercules [facility] Performing Organization Address City/State/Zipcode Phone Number [facility] [address] [place] [address] [place] after 07/14/2019 Insurance Payer Benefit Plan / Subscriber ID Effective Dates Phone Addre ss Type Group MEDICARE MEDICARE A B [id number] 1999-Present Medicare [facility] AAR/[place] [id number] 2019-Present Medigap SUPPLEMENT/[facility] Advance Directives For more information, please contact: [phone] Code Status Date Activated Date Inactivated Comments Full Code 01/06/2020 12:51 AM 01/07/2020 8:29 PM This code status was determined by: Patient
--- OUTSIDE RECORDS SUMMARY | 2020-07-14 08:45 | XMS REPORT | Continuity of Care Document ---
:1935 Author Organization [facility] [place] [employer] Information [facility] Care Team Providers Name Role Phone [facility] [place] Information [facility] Unavailable Un available Problems Problem Status Onset Classification Date Comments Sourc e Date Reported ANEMIA, Active 03/11/20 [facility] 20 Ottoniel ESSENTIAL Active [facility] (HEMORRHAGIC) Dequan n THROMBOCYTHEMIA OTHER SPECIFIED Active Lee rial ANEMIAS [place] Medications Medication Details Route Status Patient Ordering Order Source Instructions Provider Date Fentanyl 150 Inactive microgram, 2019 [place] Route: IV, ONCE, Dosing Weight 77.273, kg, Start date: 03/18/20 11:45:00 CDT, Stop date: 03/18/20 11:45:00 CDT clopidogrel 75 MG 75 mg = 1 Active Oral Tablet [Plavix] tab, PO, 2019 [place] Daily, # 30 tab, 0 Refill(s) Hydrochlorothiazide 1 tab, PO, Active 03/18/ H 12.5 MG / valsartan Daily, # 30 2020 [place] 320 MG Oral Tablet tab, 0 [Diovan HCT 320/12.5] Refill(s) metoprolol tartrate 25 mg = 1 Active 25 mg oral tablet tab, PO, 2019 [place] and BID, # 180 tab, 0 Refill(s) dronedarone 400 MG 400 mg = 1 Active Oral Tablet [Multaq] tab, PO, 2019 [place] BID, # 60 tab, 0 Refill(s) levothyroxine 25 mcg 25 Active (0.025 mg) oral microgram = 2019 [place] tablet 1 tab, PO, Daily, # 30 tab, 0 Refill(s) amLODIPine 5 mg oral 5 mg = 1 Active tablet tab, PO, 2019 [place] Daily, # 90 tab, 0 Refill(s) pitavastatin 2 MG 2 mg = 1 Active Oral Tablet [Livalo] tab, PO, 2019 [place] Daily, # 30 tab, 3 Refill(s) Aspirin 81 MG Enteric 81 mg = 1 Active Coated Tablet tab, PO, 2019 [place] Daily, # 90 tab, 3 Refill(s) gabapentin 300 MG 300 mg = 1 Active Oral Capsule cap, PO, 2019 [place] TID, # 90 cap, 0 Refill(s) hydroxyurea 500 mg PO, Daily, Active oral capsule 0 Refill(s) 2019 [place] pantoprazole 40 mg 40 mg = 1 Active oral enteric coated tab, PO, 2019 [place] tablet Daily, # 30 tab, 0 Refill(s) ferrous sulfate 325 325 mg = 1 Active H mg oral enteric tab, PO, 2019 [place] coated tablet Daily, # 30 tab, 0 Refill(s) B-12 2500 mcg oral 2,500 Active tablet microgram = 2019 [place] 1 tab, PO, Daily, 0 Refill(s) Ocuvite PO, Daily, Active 0 Refill(s) 2019 [place] CoQ10 300 mg oral 300 mg = 1 Active capsule cap, PO, 2019 [place] Daily, 0 Refill(s) melatonin 3 mg oral 3 mg = 1 Active tablet tab, PO, 2019 [place] Bedtime, PRN for insomnia, # 60 tab, 0 Refill(s) timolol ophthalmic 1 drp, Active 0.5% solution OPTH, BID, 2019 [place] # 10 ml, 0 Refill(s) bimatoprost 0.1 MG/ML 1 drp, BOTH Active Ophthalmic Solution EYES, 2019 [facility] [[place]] Bedtime, # 5 mL, 4 Refill(s) Multiple Vitamins 1 tab, PO, Active oral tablet Daily, # 30 2019 [place] tab, 0 Refill(s) Allergies, Adverse Reactions, Alerts Substance Category Reaction Severity Reaction Status Date Comments S ource type Reported penicillin Assertion Xylocaine Drug Active M H allergy [place] Demerol Assertion Drug Active MH allergy [place] Xylocaine Assertion Drug Active MH HCl allergy [place] Immunizations No Data Provided for This Section Results Order Name Results Value Reference Date Interpretation Comments Viri rce Range HEMATOLOGY WBC 7.2 3.7 - 10.4 10/01/ MH 2020 [place] HEMATOLOGY RBC 3.22 4.20 - 5.40 2019 [place] HEMATOLOGY Hgb 10.8 12.0 - 16.0 2019 [place] HEMATOLOGY Hct 32.6 36.0 - 48.0 2019 [place] HEMATOLOGY MCV 101.5 80.0 - 98.0 2019 [place] HEMATOLOGY MCH 33.6 27.0 - 31.0 2019 [place] HEMATOLOGY MCHC 33.1 32.0 - 36.0 2019 [place] HEMATOLOGY RDW 17.0 11.5 - 14.5 2019 [place] HEMATOLOGY Platelet 808 133 - 450 2019 [place] HEMATOLOGY MPV 8.1 7.4 - 10.4 2019 [place] HEMATOLOGY Neutrophils # 4.9 1.5 - 8.1 2019 [place] HEMATOLOGY Lymphocytes # 1.4 1.0 - 5.5 2019 [place] HEMATOLOGY Monocytes # 0.6 0.0 - 0.8 2019 [place] HEMATOLOGY Eosinophils # 0.2 0.0 - 0.5 2019 [place] HEMATOLOGY Basophils # 0.1 0.0 - 0.2 2019 [place] HEMATOLOGY Segs 68.0 45.0 - 75.0 2019 [place] HEMATOLOGY Bands 0.0 0.0 - 11.0 2019 [place] HEMATOLOGY Lymphocytes 19.0 20.0 - 40.0 2019 [place] HEMATOLOGY Monocytes 9.0 2.0 - 12.0 2019 [place] HEMATOLOGY Eosinophils 3.0 0.0 - 4.0 2019 [place] HEMATOLOGY Basophils 1.0 0.0 - 1.0 2019 [place] HEMATOLOGY Atypical 0.0 <=0.0 % Lymphs 2019 [place] HEMATOLOGY Plt Morph Normal Normal (03/18/20 10:18 AM) 2019 [place] [facility] HEMATOLOGY Tot Cell Ct 100 2019 [place] HEMATOLOGY Macrocyte 1+ None Seen *ABN* 2019 [place] (03/18/20 10:18 AM) HEMATOLOGY Retic Auto 2.7 0.5 - 1.5 2019 [place] Pathology Reports No Data Provided for This Section Diagnostic Reports Report Value Date Source Bone Marrow Biopsy PROCEDURE INFORMATION: 03/18/2020 Tejas Barnett or Trocar (VR) Exam: IR Diagnostic Bone Marrow Biopsies And Asp irations Exam date and time: 03/18/2020 11:10 AM Age: 85 years old 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 The interpreting physician was present and supervised the procedu re. CT guidance was provided. Radiation optimization: All CT scans at this facility use at least one of these dose optimization techniques: automated exposure control; mA and/or kV adjustment per patient size (includes targeted e xams where dose is matched to clinical indication); or iterative reconstructio n. Guidance contrast: CT contrast route: Intra-veno us; COMPARISON: No relevant prior studies available. RADIATION DOSE METRICS: Total DLP (mGy-cm): 400.42 FINDINGS: Advanced practice providers: None CONSENT AND SEDATION INFO: Consent: The procedure, risks, benefits and alternatives of the procedure were discussed. Informed consent was obtained. Time out: Timeout was performed prior to the pro cedure. Level of sedation: IV fentan yl used for analgesia. Formal moderate sedation not provided , for safety (patient not adequately ELECTROPLATING [employer]ER O). Procedure summary: The patient was placed in the prone position. 1% lidocaine was used for local anesthesia. Using CT guidance, 11-gauge needle was advanced into the posterior left iliac bone. CT imaging confirmed proper positioning of the needle with the tip in the medullary bone. Approximately 1 cc of bone marrow was initially aspirated and given to patho logy. The presence of spicules was confirmed. 10 cc of bone marrow was aspirated and given to pathol ograina. 1 cm long core biopsy sample of bone marrow was obtained utili zing the guide needle. The core biopsy sample was placed in formali n container and appeared grossly adequate. Pressure was applied at the puncture site with adequate h emostasis. Procedural imaging: Post biopsy imaging demonstrates no hematoma. Complications: No immediate complications. Patient tolerated th e procedure well. IMPRESSION: Successful bone marrow biopsy. Final pathology r eport is pending. Nicholas Eldridge MD On 03/18/2020 12:04:59; VR [id number] Consultation Notes No Data Provided for This Section Discharge Summaries No Data Provided for This Section History and Physicals No Data Provided for This Section Vital Signs Vital Sign Value Date Comments Source Height 170.18 cm 03/18/2020 [facility] Weight 77.273 03/18/2020 [facility] BMI Calculated 26.68 03/18/2020 [facility] Encounters Location Location Encounter Encounter Reason Attending ADM DC Stat us Source Details Type Number For Provider Date Date [facility] [id number] Cris 03/18 03/19 Ottoniel Pant /2019 [facility] Procedures No Data Provided for This Section Assessment and Plan No Data Provided for This Section Plan of Care No Data Provided for This Section Social History Social History Date Source Social History TypeResponse 03/18/2020 [facility] Smoking Status Never smoker; Exposure to Tobacco Smoke None; Cigarette Smoking Last 365 Days No; Reg Smoking Cessation Counseling Yes entered on: 03/18/20 Family History No Data Provided for This Section Advance Directives No Data Provided for This Section Functional Status No Data Provided for This Section
--- OUTSIDE RECORDS SUMMARY | 2020-07-14 08:46 | XMS REPORT | Continuity of Care Document ---
:1935 Author Organization [facility] t Address [address] [place] [address] Care Team Providers Name Role Phone Pcp Primary Care Physician Unavailable Ronel Gutiérrez Attending Clinician CORA Attending Clinician Unavailable Cora SUBRAMANIAN Attending Clinician Marie Lau MD Attending Clinician Myke SUBRAMANIAN Attending Clinician Garrett Cole MD Attending Clinician Mushtaq Quintana MD Attending Clinician Jd Leong MD Attending Clinician Janina Barraza MD Attending Clinician GARRETT COLE Admitting Clinician Unavailable Payers Payer Name Policy Type Policy Effective Date Expiration Date Sour ce Number MEDICAREMEDICARE A [id number] 1999 [facility] [id number] 1998-P 00:00:00 - Medical resentMedicare Center MCR [id number] 2019 [facility] [place] SUPPLEMENT/INDIVIDUALA 00:00:00 - Medical [id number] /06/2019-PresentMedigap Problems Condition Condition Condition Status Onset Resolution Last Treating Co mments Source Name Details Category Date Date Treatment Clinician Date ANEMIA, Diagnosis Active 2020-03-18 Ct moria 03-11 10:11:00 l ANEMIA, 00:00: [place] 00 Active 03/11/2020 [facility] Gastrointe Gastrointe Disease Active [facility] hemorrhage hemorrhage 00:00: Ct dical with with 00 [place] melena melena A-fib A-fib Disease Active [facility] - 00:[facility]: Medical 00 [place] Anemia Anemia Disease Active [facility] - 00:[facility]: Medical 00 [place] Thrombocyt Thrombocyt Disease Active [facility] osis osis 01-05 [facility] - 00:00: Medical 00 [place] ESSENTIAL Diagnosis Active 2020-03-18 Memoria (HEMORRHAG 10:11:00 l IC) [place] THROMBOCYT ESSENTIAL HEMIA (HEMORRHAG IC) THROMBOCYT HEMIA Active [facility] OTHER Diagnosis Active 2020-03-18 Mem oria SPECIFIED 10:11:00 l ANEMIAS OTHER [place] SPECIFIED ANEMIAS Active [facility] Allergies, Adverse Reactions, Alerts Allergy Allergy Status Severity Reaction(s) Onset Inactive Treating Comm ents Source Name Type Date Date Clinician Meperidi Propensi Active [facility]05 [facility] - adverse 00:00: Medical reaction 00 [place] Penicill Propensi Active [facility] ins [facility] to 01-05 [facility] - adverse 00:00: Medical reaction 00 [place] Lidocain Propensi Active [facility] e Hcl ty to 01-05 [facility] - adverse 00:00: Medical reaction 00 [place] PCN Adverse Active Info Not [facility] Reaction Available [facility] Demerol Adverse Active Info Not [facility] Reaction Available [facility] penicill penicill Active Memori a in in l [place] Demerol Demerol Active Memoria l [place] Xylocain Xylocain Active Memori a e HCl e HCl l [place] Social History Social Habit Start Date Stop Date Quantity Comments Source History SDOH [facility] Std Dr[facility] Medica l Center History SDOH [facility] - Alcohol Binge Medical [place] ter Sex Assigned At [facility] Tobacco use and 2020-01-07 2020-01-07 Never used [facility] sumaya - exposure 00:00:00 00:00:00 [facility] Alcohol intake 2020-01-07 2020-01-07 Current [facility] - 00:00:00 00:00:00 non-drinker of Medical Ce nter alcohol (finding) History SDOH 2020-01-07 2020-01-[address] [facility] - Alcohol Frequency 00:00:00 00:00:00 [facility] Smoking Status Start Date Stop Date Source Never smoker [facility] Medications Ordered Filled Start Stop Current Ordering Indication Dosage Frequency Signature Comments Components Source Medication Medication Date Date Medication? Clinician (SIG) Name Name Fentanyl 2019-06 No 150 Memoria 0-01 microgram, l 16:45: Route: IV, [place] 00 ONCE, Dosing Weight 77.273, kg, Start date: 03/18/20 11:45:00 CDT, Stop date: 03/18/20 11:45:00 CDT clopidogrel 2019-06 Yes 75 mg = 1 M emoria 75 MG Oral 0-01 tab, PO, l Tablet 15:26: Daily, # [place] [Plavix] 00 30 tab, 0 Refill(s) Hydrochloro 2019-06 Yes 1 tab, PO, Memoria thiazide 0-01 Daily, # l 12.5 MG / 15:26: 30 tab, 0 Her uribe valsartan 00 Refill(s) 320 MG Oral Tablet [Diovan HCT 320/12.5] metoprolol 2019-06 Yes 25 mg = 1 Me moria tartrate 25 0-01 tab, PO, l mg oral 15:26: BID, # 180 Herm rebeca tablet 00 tab, 0 Refill(s) dronedarone 2019-06 Yes 400 mg = 1 Memoria 400 MG Oral 0-01 tab, PO, l Tablet 15:26: BID, # 60 Dequan n [Multaq] 00 tab, 0 Refill(s) levothyroxi 2019-06 Yes 25 Memori a ne 25 mcg 0-01 microgram l (0.025 mg) 15:26: = 1 tab, Her uribe oral tablet 00 PO, Daily, # 30 tab, 0 Refill(s) amLODIPine 2019-06 Yes 5 mg = 1 Mem oria 5 mg oral 0-01 tab, PO, l tablet 15:26: Daily, # [place] 00 90 tab, 0 Refill(s) pitavastati 2019-06 Yes 2 mg = 1 Me moria n 2 MG Oral 0-01 tab, PO, l Tablet 15:26: Daily, # [place] [Livalo] 00 30 tab, 3 Refill(s) Aspirin 81 2019-06 Yes 81 mg = 1 Me moria MG Enteric 0-01 tab, PO, l Coated 15:26: Daily, # [place] Tablet 00 90 tab, 3 Refill(s) gabapentin 2019-06 Yes 300 mg = 1 M emoria 300 MG Oral 0-01 cap, PO, l Capsule 15:26: TID, # 90 Tasia nn 00 cap, 0 Refill(s) hydroxyurea 2019-06 Yes PO, Daily, Memoria 500 mg oral 0-01 0 l capsule 15:26: Refill(s) Tasia nn 00 pantoprazol 2019-06 Yes 40 mg = 1 M emoria e 40 mg 0-01 tab, PO, l oral 15:26: Daily, # [place] enteric 00 30 tab, 0 coated Refill(s) tablet ferrous 2019-06 Yes 325 mg = 1 Lee dominique sulfate 325 0-01 tab, PO, l mg oral 15:26: Daily, # Dequan n enteric 00 30 tab, 0 coated Refill(s) tablet B-12 2500 2019-06 Yes 2,500 Memoria mcg oral 0-01 microgram l tablet 15:26: = 1 tab, [place] 00 PO, Daily, 0 Refill(s) Ocuvite 2019-06 Yes PO, Daily, Lee dominique 0-01 0 l 15:26: Refill(s) [place] 00 CoQ10 300 2019-06 Yes 300 mg = 1 Me moria mg oral 0-01 cap, PO, l capsule 15:26: Daily, 0 Dequan n 00 Refill(s) melatonin 3 2019-06 Yes 3 mg = 1 Me moria mg oral 0-01 tab, PO, l tablet 15:26: Bedtime, [place] 00 PRN for insomnia, # 60 tab, 0 Refill(s) timolol 2019-06 Yes 1 drp, Memoria ophthalmic 0-01 OPTH, BID, l 0.5% 15:26: # 10 ml, 0 [place] solution 00 Refill(s) bimatoprost 2019- Yes 1 drp, Lee dominique 0.1 MG/ML 0- BOTH EYES, l Ophthalmic 15:26: Bedtime, # H ermann Solution 00 5 mL, 4 [Lumigan] Refill(s) Multiple 2020- Yes 1 tab, PO, Mem oria Vitamins 0-01 Daily, # l oral tablet 15:26: 30 tab, 0 H ermann 00 Refill(s) clopidogreL 2020-0 Yes 75mg QD Take [address] (PLAVIX) 75 7-22 by mouth Luke s - mg tablet 18:29: daily. Medica l 17 Center valsartan-h 2019-0 Yes 1{tbl} QD Take [address] ydrochlorot 7-22 tablet by [place] [facility] - hiazide 18:29: mouth Medical (DIOVAN-HCT 17 daily. Center ) 320-12.5 mg per tablet metoprolol 2020-0 Yes 25mg Q.5D Take [address] tartrate 7-22 by mouth 2 [facility] - (LOPRESSOR) 18:29: (two) Medic al 25 MG 17 times Center tablet daily. dronedarone 2020-0 Yes 400mg Q.5D Take [address] (MULTAQ) 7-22 mg by [facility] - 400 mg 18:29: mouth 2 Medical tablet 17 (two) Center times daily. levothyroxi 2020-0 Yes 25ug Take [address] ne 7-22 mcg by [facility] - (SYNTHROID, 18:29: mouth Medic al LEVOTHROID) 17 Every Center 25 MCG morning on tablet an empty stomach. amLODIPine 2020-0 Yes 5mg QD Take [address] (NORVASC) 5 7-22 by mouth Luke s - MG tablet 18:29: daily. Medica l 17 Center hydroxyurea 2020-0 Yes 100mg QD Take [address] (DROXIA) 7-22 mg by [facility] - 500 mg 18:29: mouth Medical capsule 17 daily. [place] gabapentin 2020-0 Yes 300mg QD Take [address] (NEURONTIN) 7-22 mg by [facility] - 300 MG 18:29: mouth Medical capsule 17 nightly. [place] pitavastati 2020-0 Yes 2mg QD Take [address] n calcium 7-22 by mouth [facility] - (LIVALO) 2 18:29: daily. Medic al mg Tab 17 Center tablet cyanocobala 2020-0 Yes 1{tbl} QD Place [address] min, 7- tablet [facility] - vitamin 18:29: under the Medic al B-12, 2,500 17 tongue Center mcg Subl daily. aspirin 81 2020-0 Yes 81mg QD Take [address] MG EC -22 by mouth [facility] - tablet 18:29: daily. [address] dorzolamide 2020-0 Yes 1[drp] Q.5D Place [address] -timoloL 7-22 drop into [facility] - (COSOPT) 18:29: the left Medic al 22.3-6.8 17 eye 2 Center mg/mL (two) ophthalmic times solution daily. bimatoprost 2020-0 Yes 1[drp] QD Place [address] (LUMIGAN) 7- drop into [facility] - 0.03 % 18:29: both eyes Medica l ophthalmic 17 nightly. Cente r drops MELATONIN 2020-0 Yes QD Take by [facility] ORAL - mouth [facility] - 18:29: nightly. [address] coenzyme 2020-0 Yes QD Take by [facility] Q10 (CO - mouth [facility] - Q-10) 300 18:29: daily. Medica l mg Cap Center beta-carote 2020-0 Yes QD Take by [facility] ne,A,-vits - mouth [facility] - C,E/mins 18:29: daily. Medical (OCUVITE Center ORAL) pantoprazol 2020-0 Yes 40mg Q.5D Take [address] e -22 tablet (40 [facility] - (PROTONIX) 00:00: mg total) Me dical 40 MG 00 by mouth 2 Center tablet (two) times daily. ferrous 2020-0 2020- No 325mg Take [address] sulfate 325 -06 01- tablet [facility] - (65 FE) MG 00:00: 23:59 (325 mg Med ical EC tablet 00 :00 total) by Cente r mouth 2 (two) times daily with breakfast and dinner. pantoprazol 2020-0 2020- No 40mg Q.5D Take [address] e 7-22 07-22 tablet (40 [facility] - (PROTONIX) 00:00: 00:00 mg total) M edical 40 MG 00 :00 by mouth 2 Center tablet (two) times daily. ferrous 2020-0 2020- No 325mg Take [address] sulfate 325 01-06- tablet [facility] - (65 FE) MG 00:00: 00:00 (325 mg Med ical EC tablet 00 :00 total) by Cente r mouth 2 (two) times daily with breakfast and dinner. ferrous 2020-0 2020- No 325mg Take [address] sulfate 325 01-06 tablet [facility] - (65 FE) MG 00:00: 00:00 (325 mg Med ical EC tablet 00 :00 total) by Cente r mouth 2 (two) times daily with breakfast and dinner. pantoprazol 2019-0 2020- No 40mg Q.5D Take [address] e 01-06 tablet (40 [facility] - (PROTONIX) 00:00: 00:00 mg total) M edical 40 MG 00 :00 by mouth 2 Center tablet (two) times daily. Estradiol Estradiol Yes L[facility] as [facility] 3-07 [place] directed [facility] - 00:00: Memoria 00 l Outpati ent Clinics Multaq Multaq Yes Lulu [address] [place] with meals [facility] Levoxyl Levoxyl Yes [place]ulu [address] [facility] [place] on an [facility] - empty Memoria stomach in l the Outpati morning ent Clinics Amlodipine Amlodipine Yes Lulu [address] Besylate Besylate Dulce [place] [facility] - Memoria l Outpati ent Clinics Lumigan Lumigan Yes Lulu [address] [place] into [facility]ukes - affected Memoria eye in the l evening Outpati ent Clinics Plavix Plavix Yes Lulu [address] [facility] [place] [facility] Diovan HCT Diovan HCT Yes Lulu [address] [facility] [place] [facility] Gabapentin Gabapentin Yes Lulu [address] [facility] [place] [facility] L18-Dycsva H42-Sistyf Yes [facility] as [facility] [place] directed [facility] Hydroxyurea Hydroxyurea Yes Lulu as [facility] [place] directed [facility] - [facility] ent [facility] Melatonin Melatonin Yes Lulu as [facility] [place] directed [facility] - [facility] CoQ-10 CoQ-10 Yes [place] [address] [facility] [place] with a [facility] - meal Memoria [facility] Aspirin 81 Aspirin 81 Yes Lulu [address] [facility] [place] [facility] - [facility] Metoprolol Metoprolol Yes Lulu [address] Succinate Succinate [facility] Vital Name Observation Time Observation Value Comments Source Height 2020-03-18 15:13:00 170.18 cm [facility] Weight 2020-03-18 15:13:00 [facility] BMI Calculated 2020-03-18 15:13:00 [place] [facility] Systolic blood 2020-01-07 15:15:00 113 mm[Hg] [facility] Diastolic blood 2020-01-07 15:15:00 56 mm[Hg] [facility] Heart rate 2020-01-07 15:15:00 77 /min [facility] Body temperature 2020-01-07 15:15:00 36 Kitty [facility] Respiratory rate 2020-01-07 15:15:00 18 /min [facility] Oxygen saturation in 2020-01-07 15:15:00 96 /min [facility] Arterial blood by Medical Ce nter Pulse oximetry Body height 2020-01-06 14:07:00 167.6 cm [facility] Body weight 2020-01-06 14:07:00 79.5 kg [facility] BMI 2020-01-06 14:07:00 28.29 kg/m2 [facility] Procedures Procedure Date / Time Performed Performing Clinician Dharmesh preciado RHYTHM STRIP - SCAN 2020-01-09 14:52:13 Provider, Default [facility] RHYTHM STRIP - SCAN 2020-01-09 13:40:31 Provider, Default [facility] TRANSFUSION SERVICE 2020-01-08 18:03:53 Provider, Default [facility] REPORT - SCAN [facility] PREPARE LEUKO-REDUCED 2020-01-07 23:54:00 Lau, Judith Salazar [facility] RBC [facility] TRANSFUSION SERVICE 2020-01-07 18:04:[facility] Scanning [facility] POCT-GLUCOSE METER 2020-01-07 12:00:00 MykeAriella victor [facility] REPORT OF PROCEDURE - 2020-01-07 09:17:11 [facility] REPORT OF PROCEDURE - 2020-01-07 09:08:32 Madi Юлия [facility] TISSUE EXAM 2020-01-07 08:32:00 Madi [facility] UPPER ENDOSCOPY 2020-01-07 08:04:00 Madi [facility] COLONOSCOPY 2020-01-07 08:04:00 Madi [facility] POCT-GLUCOSE METER 2020-01-07 05:48:00 Lau, Judith Salazar [facility] BASIC METABOLIC PANEL 2020-01-07 05:04:[address] [facility] - (7) [facility] TSH/FREE T4 IF INDICATED 2020-01-07 05:04:00 Lau, Judith Kelly [facility] CBC W/PLT COUNT & AUTO 2020-01-07 05:04:00 Amena Cole [facility] DIFFERENTIAL [facility] POCT-GLUCOSE METER 2020-01-07 00:12:00 Lau, Judith Salazar [facility] POCT-GLUCOSE METER 2020-01-06 18:36:00 Lau, Judith Salazar [facility] HEMOGLOBIN AND 2020-01-06 16:56:00 Lau, Judith Salazar [facility] es - HEMATOCRIT [facility] TRANSFUSE LEUKO-REDUCED 2020-01-06 15:53:11 Lau, Judith Salazar [facility] RED BLOOD CELLS [facility] SARS-COV2/RT-PCR (HS & 2020-01-06 09:30:00 Lau, Judith Kelly [facility], MANUAL 2020-01-06 09:28:00 Sherron Yanes [facility] FERRITIN 2020-01-06 08:34:00 [facility] IRON, TIBC, % SAT. 2020-01-06 08:34:00 [facility] B12 AND FOLATE 2020-01-06 08:34:00 Rachell Laublane Markn [facility] ABORH, MANUAL 2020-01-06 08:34:00 [facility] BASIC METABOLIC PANEL 2020-01-06 04:47:00 Amena Cole [facility] (7) [facility] HEPATIC FUNCTION PANEL 2020-01-06 04:47:00 Douglas [facility] PROTHROMBIN TIME/INR 2020-01-06 04:47:00 [facility] MAGNESIUM 2020-01-06 04:47:00 [facility] CBC W/PLT COUNT & AUTO 2020-01-06 04:47:00 [facility] Plan of Care Planned Activity Planned Date Details Comments Source Future Scheduled 2020-02-17 INFLUENZA VACCINE (#1) [facility] Test 00:00:00 [code = INFLUENZA Medical Ce nter VACCINE (#1)] Future Scheduled 2000-02-[address] [facility] - Test 00:00:00 WELLNESS (YEAR 2 or Medical Center FIRST YEAR if no IPPE) [code = MEDICARE ANNUAL WELLNESS (YEAR 2 or FIRST YEAR if no IPPE)] Future Scheduled 1999 PNEUMOCOCCAL 65+ YRS [facility] - Test 00:00:00 (1 of - [facility] Center [id number] PCV13) [code = PNEUMOCOCCAL 65+ YRS (1 of - [id number] PCV13)] Encounters Start End Encounter Admission Attending Care Care Encounter Source Date/Time Date/Time Type Type Clinicians Facility Department ID 2020-05-20 2020-05-20 Outpatient STLMLC STLMLC [id number] [facility] 2020-03-18 2020-03-18 Outpatient Pant, MHPL MHPL [id number] 175 09:45:00 23:59:00 Cris 00 Ronel 2020-03-18 2020-03-18 Outpatient MHBL MHBL [id number] MHBL 09:45:00 09:45:00 2019-07-10 2019-07-10 [facility] [id number] 10:00:00 10:00:00 t Specialty/U Alejandra kes - Specialty rology Memori a /Urology Clinic l Clinic Outpati ent Clinics 2018-12-23 2018-12-23 [facility] [id number] 10:15:00 10:15:00 t Specialty/U Alejandra kes - Specialty rology Memori a /Urology Clinic l Clinic Outpati ent Clinics 2018-09-19 2018-09-19 [facility] [id number] 10:30:00 10:30:00 t Specialty/U Alejandra kes - Specialty rology Memori a /Urology Clinic l Clinic Outpati ent Clinics 2018-08-22 2018-08-22 [facility] [id number] 10:15:00 10:15:00 t Specialty/U Alejandra kes - Specialty rology Memori a /Urology Clinic l Clinic Outpati ent Clinics 2018-08-15 2018-08-15 [facility] [id number] 10:15:00 10:15:00 t Specialty/U Alejandra kes - Specialty rology Memori a /Urology Clinic l Clinic Outpati ent Clinics Results Test Description Test Time Test Comments Results Result Comments Source HEMATOLOGY 2020-03-18 7.2 Memorial Tasia nn 15:18:00 HEMATOLOGY 2020-03-18 3.22 [facility] T[facility] nn 15:18:00 HEMATOLOGY 2020-03-18 10.8 Memorial Tasia nn 15:18:00 HEMATOLOGY 2020-03-18 32.6 Memorial T[facility] nn 15:18:00 HEMATOLOGY 2020-03-18 101.5 Memorial Tasia nn 15:18:00 HEMATOLOGY 2020-03-18 15:18:00 Test Item Value Reference Range Interpretation Comme nts MCH (test code = MCH) 33.6 pg 27.0-31.0 Memorial [id number] 15:18:0033.1[facility]ann[facility]MATOLOGY 2020-03-18 15:18:0017.0[facility] QtyvsxjZNMQRVEBPM9375-23-04 15:18:90531Bowyrkmh PioynmtTCCKJSXWSI4329-88-89 15:18:008.1[facility]orial TkvcnqpCZWYCYGKYF7013-10-59 15:18:004.9Memorial YhzkegqCYPXKEGUEK9281-75-99 15:18:001.4[facility] [place]iel [id number] 15:18:000.6[facility]orial [id number] 15:18:000.2 Memorial JfmwbmxPTWTQLWTBM8236-04-30 15:18:000.1[facility] HermannHEMATOLOGY 2020-03-18 15:18:0068.0[facility]orial JowkjwzOIRZFDIZRM7316-01-99 15:18:000.0[facility]orial HaficznXKFXVZVWTU4285-79-09 15:18:0019.0[facility]orial PewfqdzNEXKPHNRHW6738-55-16 15:18:009.0[facility]orial JqbrzcoLSGXZOPDVW4779-94-54 15:18:003.0[facility] [id number] 15:18:001.0[facility]orial [id number] 15:18:000.0 Memorial [id number] 15:18:00Normal (03/18/20 10:18 AM)[facility]orial [id number] 15:18:00 Test Item Value Reference Range Interpretation Comments Tot Cell Ct (test code = Tot Cell Ct) 100 1 Memorial [id number] 15:18:001+ *ABN*(03/18/20 10:18 AM)[facility] [id number] 15:18:002.7[facility]orial HermannTissue Vrwb6770-11-25 09:44:00 Test Item Value Reference Range Interpretation Comments Case Report (test code Surgical Pathology = 104) Report Case: [id number] Authorizing Provider: Юлия Barraza MD Collected: 01/07/2020 08:32 AM Ordering Location: [address] Received: 01/07/2020 01:46 PM Service Pathologist: Isai Silva MD Specimens: A) - Stomach, Antrum, r/o H. Pylori atrophic gastritis B) - Biopsy, Gastric, body,r/o H. Pylori atrophic gastritis DIAGNOSIS (test code = [id number] 3220) FuZzEwMzNcZnRuYmpcdWMx VZkfltQvOVhae5XsC5AvQq AwMFxhbnNpXGRlZmxhbmcx IDTnRAG9nmPxDANnIObrKO YpAWcgGg9qhAYuyRtsTlTx GYNyd8ljfnJHvdjjbNk1p8 bjJWRvUqH0sUKuGZyxV1qg ynUlsOMoLZWcQCl2dQ40SQ TqwB7txGTuVQhzfuKkNfE3 QOqkBDNqHuD9PLNxeVBtFT OoU1juLSJbSOlsMCKmAJll bIKbIIZ9lXtbb7M3bGQriR IkuFkuLoLoKtClEGJQb5Ol AFm3aPdeC4AvLTOhZoU6zG QgUGFyYWdyYXBoIEZvbnQ7 lW89XLabnpZ5eSTqf2Vrz7 2jb891gN8lwVYtAUI3QHRo ZXIypTElUYKhSWH4LJSakZ LzV4u9FrYavRJxV4L6DwAd lSTsN4A4SmBhwUSyT8Q0Rx SrsBSbFMZouLQgSm2jdRRi pFRuaz5tlg16TCS4w9TeoA paIPQ3RBJ6LaWoWg2qgYRs IYBoYL4iBuJprISeKOMdcn 49lGrgKQziskVtiG5fApOe GXYwnICyUHJsCA2pgHGrGY QraX8mrcceLSEbRzCfuqtp CHEomPdxvoUzNo0qtDpjSX B6IPfaV3osdT4jXiT2ZCls H7bqtT5qUEw7SGkdlKY4RV NmkA1oZL9ypqxnr6tsHoHo BX7yfihhb2zwNeZeKW7res j9q8gkGpQxQN7ytyxwx8oz NzIwXGhlYWRlcnkwXGZvb3 CkzmfnKMFmc0HbB3XtnAkn I37inHdxE93nDFPqyLpbhF 8ifRrruM0uUrGrJlRvLZgx bFxwbGFpblxmMVxmczIwXG kslvmoNQDgJTpqE6daFxBb UIFirVlpIOsll8UhCGGqAW CcSnYnOMJWOYZVPNzRI2RL OFZeJH3ENhMTNTHWM6JQUB pccGFyIEFOVFJBTCBNVUNP H2PwK2vCFJBGD57AMBJLAB ZJQyBSRUFDVElWRSBHQVNU Xw1HVPXHINYDHuRfXT1BWY PERC2STUGIVSUVKAbZD3yI LlxwYXIgTkVHQVRJVkUgRk 3KKREGK1JWWNGILISGDvYG DpNLS6qJGBTLKINBKN1TWC EuXHBhciBXQVJUSElOIFNU ZINMUOMPNXEIGeLXX9NzWE TJIKZUVkZPHUEOSHfNCX1L Z2PZULPNSsgzKTOkcUWvMB BBUlQgQiBHQVNUUklDIEJP RFkgQklPUFNZOlxwYXIgR0 FCZTGPIlIXSXMAT3WpZ5cA UJTQNoEDI5OVFeBJUI4OZE VLHZVPRBOtDA1VUE0NZCMY MW9PG3PFOR3JCAvOQMBJTX zJL4vRKlztMUDsXfORDKDC NnOhJj9XGHFMW9ZFEEODRF QPCpEIPcFDT2wUPMDEXCAI RU3ELFScBXXcdfFNOJDQSJ lOIFNUQVJSWSBTVEFJTiBG H7HlBPSZRQVDXvUTKNUACA wLHL6MG8LEBUOQFblhNGRa F1BVWWARSAcFC4KJCMJeO5 7BKNNDTQ7hgNCnUPKqgo91 YGO5EaTta6Y5RKA1LHPnTN Ynj6lqUSIhvAXnPdWuZzRs ZnRuYmpcdWMxXGRlZmYwe1 gpn701vJLzn9pjARNsMgD5 yBWaPXValYBjS193COOjKC gmt0yzn2AwWMBziTYjc7H8 EWSUuuwbdYm8rHpeX98cu4 J3NraoX5ahTBOrEZXiE6Za ZI1zBENiTqw1EYR1ORR8AE KmBATqO8BkMC2fCXGmnWYx ACx6s4acoWvbASUcBDN5j3 vyJBqbopKrQB3ngu7uzXh4 m2mzrhXgLSFeDPFeiTVJRH RkH7OveNpxUi9zhNk2xRvw YjooAOA7Dlu2TZ5lih06ec f5gBxxCDYeltyfHtQ6SGnr YSRltbzrROn1OEyqIYGytE Q3SXMzqHDpV3PzICIhTR8k skp5HBD4CZfeWPMzMpR8NS UucUMrTBGmcOrrXAykz652 COB2TjIzMU1aM4Eoa7Z3oU 9maXRcZGVmdGFiNzIwXGZv xo6psULxZQswi1EbBFU4af H1pLTzaAPgRRYvOsW4IQba QG6taf63BQWgHZO5xs6flF CndNskeeUjlSFrKPmnJ1Mj RPBph924TORmD6BaLFZjk8 X6ofDiRuAfZTRmaEH6dvC8 GBBqYA1xusuvo0bgRBlvGD jsGAOblwH1jaN1LBGtzVYc N3NuxE4nLVSaNG2vtpitz8 qjUHM5IAhkMWPyGDW5YtSq CYDnn6Sifhf8KhTgc1EgeX OoTQehE41nt429BIFvqkWb H9kmrHJsmwxidONzmqsbIA xfotX3SNNpIRlimnwbUVUn FHsnY9gaZfUbEHWzvYkjDZ jsu0IyQBCaIWBeWiTtmMOl MMUcWhb5KQQwhMHiABZfZw JiX5uierexMhJCRYYyk8cx T2htnJJFwOTcU2DvPTyxvm UfPLmaGYfvGCAaIRE9KF86 EGvzSCGfuh20 COMMENT (test code = q9cqoFEhXHYozZMpYiXvGU 3356) OuONObq2miBBVboJRmLwHe MzNcZnRuYmpcdWMxXGRlZm Inz6tpk356qNJks1azROTn UeL6hUQgOYPcaAAcA466CM XmAElgh4evb6KeNPNfqKDm y0Z2MFPRjbmjwFt7hNrvR0 0mp2H4CekaE5jbWSTfNRPz H0JbRB2hPUJeUel6ZZN1SM F2LWGcRUGfE0UtOY6qYHDr oECsNYm4v8uhvGfcWEYqJF J9o5ccZRotrzRbMC7qpo6c iPm9w1odjuUcNEWnXCQiqJ BFNRTbQ1TpzUafCs4neGm8 zDmeUepxKTI8Mqv0XZ1uoi 66wqr5hZrhYBQniqxrKsN9 ATbhCZCimnrwFFq0BOysLU JnbDcyMFxtYXJncjcyMFxt YXJndDcyMFxtYXJnYjcyMF ymRJJdMJS1BDjki733WSI6 CSwgg1azi2ryvZRdQla3UA JaOaRkTtzdLCzxz3Kmp8kc QWUiyo4uZYB1fXCseEjda5 P5uHTiCMXbfOPmbvCaUMRh KnA4XBxoWQ4nrl82TUPvVZ G3xp7anBOxiXbnrdUxzBLm RPoeW8RpJNKog140YAHtZ4 GwOPLew5U0gfOaItAiWHVm cVM8rmL1RHDiEEw9vLJdiw M8rsXthKRnJ5hokH89BkPb wPCjV5NtwD59WwDydBPoM6 AxiI56DfQliNJkF3GpmQ90 NjCrzULaFQYexWRvIk3fpI DeuKWvb7WbhKVzQHixK51y m585TRTbycLiT6bywLIqct gqmHCplognBTdgcyA1OLRj XHBsYWluXGYxXGZzMjBcbG FuZzEwMzNcaGljaFxmMVxk XbMwFNZeYMuqY8bfXeItCu NpEULLcJ42ia3ozEO2o5Ne JD2sI6PrDBG8aWLiUKKgGa 4vFMthb7NmeP5suQFkAw9h qUYtDS8oHKKhb1HuWTVxFA RylE4wj7ElCYKifoFdA2Y5 hKOoXRXogO7wmBAwvjf4yQ 5pUvY3gz8oBY3bg1XeiF4j AJy4zYPrmOozo3tvINvnCY njBZ28kFZoBODhYhdne0lt TTD9c9VadLHrqbVjwK45yf 8evQOqfy1rRU5bxT5om8Zw qU5dTTVpsoRqBChjW12zJC G5VUOblIPyJt6msVFmZW7w FOLvo0AxkeHIDCMdmeAjLd DnGKGjSV7sA9J4cYOhHvHX DFE6pwtyAZksaICvi8L4BN vyCSojBN4kQ2F5zQCwEM9o JCSbb1NcTQZxROohzyBtWP yrXamwmBP4TX3sH8odCLJ7 fL8faLxqyI1vsQ0bxC1ja4 XwqC9rvQTjCz2zqOTsZJ8i XBKrr4EvGDYqTZFsNCWrqe 29YKFxjW4jp3DsTFRnMP4v qRXoIR8ch2VdiJ9tQHn0fW DfgQovi1vqPsTvtPKyUXEr clxwYXJkXHBsYWluXGYwXG UgGkPhdVmshC7cNvKaBkYw DZecEV5nOLQyA0ipbVLuEQ PsOMCuT3kcTxViyL7ooBxp TKystxEbGJInTYJwhC3vhM 9acaZmLJfeKEJrd12kDYVs DJWqxjRemmJiIVCpVKT0tO BhhgDfavBwh4GiRIOyiCOg bb5utFCvk3HrBQE7t2tqwK RaHTJpXXKxtGkdg4BjGvVq gJCdkPyvDfBoRZH6yqw2fI CrwW1hvEzgENQxiZGstNQl MTEwGDAmnQ5gA8IlEWApxZ LukjyxIQByiwWflYI9pQ5p EHmnaCgrPW0ce1Ptk0PkJc HtvJ6khL4prdWctwDdCKD2 eRTePI6rEAYivmqcfPoxtU KrtznaHDlmewL8AFYxYIgz XGYxXGZzMjBcbGFuZzEwMz NcaGljaFxmMVxkYmNoXGYx IRftE5kdWuUbCfZnYMtjPT J9 CPT Code(s) (test code t5aswOOeQJWwcGNuXpBjHF = 7163) VtTLOzi0znPIErqSYiRbMh MzNcZnRuYmpcdWMxXGRlZm Dtr0jgi820gOPlf7zhJZXp UnZ7pIBkQEJghFJcL944q4 kue9tffeDesMN6JNNmLGS5 VXqwusMiakM1ERuykGIeOz V3RCvyymOdVOnmjzVmxbGr Qss6ICZeH638TAY9kLpvr2 mlGVD2WAFjNFLePqJtTu9e uIUjE087GXUaSTDBCVXxzM n2OMQlrfVoopWlhJTFb241 Q389h5hdLQDagxAcyXePgb bfx0axX472CNSunQZbkmWo VuKyBEPacRNlhTS1KTFpAA 9hysafDoPxKE3wsymtEyDk AY7fgzb5TxAvLY9afdhwTu SxETyqPVZpmxsmCOPsc2Sw izthWU3uP8Xtc5O7aE2soE QxGZMabPGxWfVyFHPgbb2g fKLqOBpot6ZiUIA1opW3tB HnfKIoORUkFY30Yyann6Xh WncaGYE4WOEscyXei1Eub3 igYgStynFjV3vhM5KcKCMq SHJnXDRqVaHsfbDul2Zjq2 GprDWsrJr9y8biLEAcNZFm wMjli2vcVYE2NFCyD7J0zN Eif5xiYUqcMOVkyYB0yqje PTzcMFNngpG1ezgjSWbhJI XdtMA1dofbKSezPOCnPwC5 nvegICvwRFGtQFD9RRpmp5 38BTG2QTnoKuxcSJcgYGCi bmNvbnRccGduZGVjXHBsYW luXHBsYWluXGYwXGZzMjRc jTfegWvdjZ7bRbPrHgTmTR gdIF7yFOBjB6apcIZdPBSi HZNhO9ncJuDavW2zuIsaVM uecwOtPJj1GqD3tIJjRZr1 CgOmfMEwCNe6MrZpqJAqAX o0HjEgeJNbyFPnyE== CLINICAL HISTORY (test z4ikaZVlVAUmnNLhVuTcJC code = 3356) GnMUJio6ttKIIgzKXhPlQc MzNcZnRuYmpcdWMxXGRlZm Rus5esh499rFWyd3bpTWDs OfF3kAXxVCGbnKEsD891XV UyWMlox1rnq3DpGQPfrUSa r9B5DKXJzfrsjSz6hBbtW9 4ee7L1GsrpB8sbSQIbXXcs GJUsNHkpcUWiWSJ9KCRaLC N0EIwvegCauaU0XZckxIWh WaQ8FNc0i0kzhCngPRDsRW J1w4stEYuvwyGfLY2ltc6n cXc8r2xztnUiTTLxMEUatW CZLTWxP7NrsZquZl5jkVp3 zJoiUwwyLHX6Ekr2YN3pso 09ttm6kHwrYBAkskkeSlN5 ZXbrWZFlpmfyKRb0OBnaPF JnbDcyMFxtYXJncjcyMFxt YXJndDcyMFxtYXJnYjcyMF lsWXZmOET5AOfvc036ZZV6 GShfp7ozi3gbqFFgAbm6UO PbKmCfReywYOuqo6Xfx7he FPFlyc9xNXV6lXRsqHhtw2 O1bXJzYWSnoIXssnGzFFHl EaM0OYtqTL9wql95EHAwOV Y4bl1rbMCutIgamkWlhYTl HXbzQ7QtJBTlt889POHwM2 GgUPOlr4W2esOuJdFfTIHl nCD7uyJ7CYTaFQp7pVMwbw G5jgBlxCLzD3semD74GbJz yIUfH7QucB27ClVybTMlM4 SjpR84NuEcwDSgP1PjhA87 BcKfwRGqGIOwhRBjTq1ugZ BmwUXyd0AtfNCwUGejA45i a640XVIwvkGeO1qjwURjcs xwbGFpblxmMFxmczIwXHFs XHBsYWluXGYwXGZzMjBccG naaZ0bJtCoYgTjRVAZziQw bHBpxCWybn7toXL6OIPYhp 4hEEVbDdddtZIuU9yxDC7l bWlhXHBhclxwbGFpblxmMV xqpwDnWUYan3OdHVLlKWiz bCbcuU7vOeSgUiZlSGZukM EnYBGtQY2ee2Zey9C7YSFi yC4mx6xhzPZjmA== SPECIMEN SOURCE (test q0bheUGoDQOhfVNiMtZuHB code = 3377) LjVGKhb2tdETZqxAZgNcRv MzNcZnRuYmpcdWMxXGRlZm Pgn9lfc185kHPka2waMZBw OqD3uHNeVIOwjGBwR619n3 zyg9wjnmNjyEP6SNYgFWX9 QDhdeqZutrE5KJcsrLVpPo A7PEjmjrTvCYnodiDplaLu Joc2AJJwK115PFJ2dDdzp0 dmTCN0UFMhIJHjQiEsLz0v qXKzB724DAUoPWHMYCWxsC c6CGQghzEhosDvrZFJb814 X371t1zdDSJnreOmbUvZvr uer4jzO324SCAfsNCpohKb JnAjKPFywMNfkMX9GWEyQJ 7obsukHaOqQU9dsoonIgYo PT1xlkx3AtWkYP0kwkruPk KyAEjtWQWyvimaVIQhg0Sv utzqBA2dZ1Pjk2Y7eQ1pvW HvLFIuaGOsNnZnEDShme2y iHPgCOgjr5OqTUZ9gvF8uF DooDHgHNAqHI72Qgwtf7Ob VttdIHT9TYJkbwLrf7Xfj0 zmOgHdpbEsB3tmM2IfJBKm TOAnIKObSvGohtLpp7Txz8 YlfRFzjCh9n4iiDHTtRVBj mVqro1roCEU7BCNdG4X5vP Onx8uhCEacFFBdsYL2ndax NBvhAYCkniE3ritfDGvlHU MrhDZ1pgcwJNblFHBrMrA7 vqoqXCzaJPLfBIJ6TBlnd2 39VQG9WIewBgjpBSzdBQNj bmNvbnRccGduZGVjXHBsYW luXHBsYWluXGYwXGZzMjRc bAbbmRvnyL9rNmUbAtNoDY rxSL8mIHUhF3vgiWOyTKCx TWSbG8gySzIeqS0nyXfpTA zgsyIbODMqDTT7v80wR4va ZFSkyGG5lRwzufSsAVLobP CiYI7jMMmgm1WbEGWsrNKu zLhiGiUbZJW4lvj9hCR8WB PrTWkqs5DcrZGxDq5fzSEv uG6bf1asKDK6xWUaz0D8ET xoHAB7nQ2bkWxiNAZwy7Ww rSKhZ8YocGJeuXlvMRHinv 0= GROSS DESCRIPTION (test p5tdpGUyNQNxaMUvOhSpDM code = 3366) DqORJkc8nsTJTuvFCiQuFe MzNcZnRuYmpcdWMxXGRlZm Vik2ymk651sJQis1tsGVGm CgQ0iIAbXYNcySVkO212EH NhETzab2syz1UbEKUyuCHd x3G6XZTGuzydeIx6vTrsO4 9td1N3CryfP4gzIKVeATvd GUMfHSzhvBJzXMW3TEIvII D5PUiuqvWedtG7JVlpmQNp DqS0JVy0y3tirRxwOXJzBZ J5n8wqTQbzsaUoES1wgi8l zHb7e8iybkBhWKMmCQKbtB AQEGCqF7FkfWckKs0qgOm0 cTfjLmliXNZ4Qho6IK7mby 71vcl2sHdfDBQqvktmLtY5 OAfoSOOkulasKRt6YUqwVW JnbDcyMFxtYXJncjcyMFxt YXJndDcyMFxtYXJnYjcyMF wnPYFoAPO2OWztl232NTW0 GLezu2myv8rspXZqOcb8UM TqQxCkLkahNCedt3Rjz3ak ZGLhsj1qVPI4wIXsiBebk4 Z4gMMhBPBflZNlhaGeYCEm KnI4YRzlCN2oph89BOJtVR W2gw0jlLLluKhwerDgjSLf NScxI9LrLDPmg669QBJzW5 UcQYBvk0W8nlIkQdTiBLUu oUO1umS7MJFvEQz7eIXqdl X3raPccCEaM5kppP87BmMc kHIlU5YjuV74EgGanYZwG3 PgyV11LjLshIXhB4BpfE76 WzBibTQbKWLvtREvRg0zgK JqgBUws6AymHRwPZoiT36o k112HVFeyrNqE9qmxVGmdr xwbGFpblxmMFxmczIwXHFs XHBsYWluXGYwXGZzMjBccG qjlI0oMwQyTrHbCCBAFfXe yIicoT5yCuQiTyRaTDRMMV ZzaXNrFKDzlgGtl6ZqSWvi biBsYWJlbGVkIHdpdGggdG vvHHPmuZjkmbHbbwAlQP1n ZRFdQ4Pgy3Hbr32bmaZcFa VyIGFuZFxwbGFpblxmMFxm irVvOJMwc8OvjCThhJTppx YiyY1dHYibSPEdeXBzJSku bGFpblxmMVxmczIwIHNvZn ByzFdwx0LiGTRvOKhwIKKi SOZzGmCgDVQmWVljPJ05KX 2qFNQ8erhnQxCvWfGowNSp UsPgiYIfExDvR79uUHVgIP KzbAEamG2iquFvnpVcqqKb zcQmyFWqpTMguHJ6ACPqES MgQTEuIFxwYXJccGFyIEIu IFxwbGFpblxmMVxmczIwIF SnE6QobxDsGVawAASgdy7q cWcpOQabBoKlAZRtm9c9jG B3rBYzcMI0pKMelVykHS8c mOOpMZMnN2Zvj7giauChaB 5hOKBkWH0gFOEwCTnxPTYu OVGpRgLpERMqYDD5vybdRF Jwp3XvbEUuXBJwLUA2hqZp fpVbdENdgSBrg6CpgCJuYA xwbGFpblxmMVxmczIwIHNv SwRgoUtgr1ArTIIkPOliBN VhEMDbCuFzEJ8mJVA4jkwt TmFogoKrZ7nvXYzbgOWcZL 84GNpbIF2qFRnpYX9gZJBy MaZCuPBiu0WiL7voEH4eCI 79tQStzRwgy6BpyRz7oTFu IGFzIEIxLiAgTUgvcGxccG FyfQ== MICROSCOPIC DESCRIPTION g3dkvGIfMSOsfRSyXaCvCM (test code = 3371) CrJSVol4tuBIChuKXgOwYk MzNcZnRuYmpcdWMxXGRlZm Jnu0wku181iMWok1qoSTMr KqD0oOPwBVEowVVhI649w0 pkb1esxeHznZQ6CSGoIAV1 BKfhedZojpW5UAikdXCpPb O1FVrmboOhPCixfpYftgJt Ene9PZIzL699WAX7yChrw5 jfCZR0HXXuCPPdLlEvIh5c vUHcU754YRBnMUTYFLFftS f7TDYkkoHhsbYbzRHSr609 U576m3slVXGfjzKxnSkEcy box5csL169TDJwbXBodtIx FwOgQCIawDPprLK4BWQzXV 1nebitLeUrYB4ylwfrHaFn CH1kaiz0QfQkIF0xzsqrLd EiBTqbYQPqmjxcDSGkh7Yg pfcnRK9fF7Uij6V3sW2hwI WjWPBitUFhPsVwXFJanl9g uLDjMShqv3WaGKX3olD0oM ZkeJHpPPZdPD26Dezde8Tk QhvfAYG3EUMlydLxz3Sie3 lwZhStbuElO0jzN3XbXOOv LUWuRLDjKkNbzgMir9Tms9 TawJHdnDj5g4paOVXkQSQu dUrpw3flOOY0YUNaB5L2uO Mbt8snRSraNEVizKN4offk JRutHIExoqT5xistWSddGI PudDI1npkoYAnbYYAfMzY9 ghfuUHtgYYZgPLU2TAmpe7 45HOH2GCtsEzcqCDtiJOWw bmNvbnRccGduZGVjXHBsYW luXHBsYWluXGYwXGZzMjRc zVzorWcwaX4vKcGtLcShLK iyIF8jBBIpI6qsxCOnBWMi WPUgK8kjRjFdqS6wbNriHX xmkfKwTZSnuaZvef6vDR0e XHBhcn0= SPECIAL STUDIES (test h6zkpVHoWLYvnDErTtLuSY code = 3376) QoXKQvf2wiZGEbyGImLtOk MzNcZnRuYmpcdWMxXGRlZm Lie5fmf283sSNzp0lcBONq FoD3rNJsJJNinARxY418SF DtVAnfr2tfb0AgZMYvhZRc g5I8BKIMOQulJlUaS314IQ YfQKyfi3vyk4JeHKAhzTNy y2B5KRVUqnmbrFm7dKddE2 2fr4O2SzenI4fgJUFlEJHq Q5CfFJ8nYICvPdq5LFJ3LQ S4LEVyOHAfM1WfEI6vKEAc vFYmPIi2m6gntNrpXHXcKI X1d4ntCSspazD0QQ0elw2m qVa1t3msqlBeOJHfAEInoY ABHOBsP8EqsUyaBc2epLv5 f6epRudadyG6gPCwMmNqCb MyMFxsaTBccmkwIENvUGF0 tYIFZLm7F056i8doUJXfpi KsgRmRvpwqk0jrX490RUNg cGVydzEyMjQwXHBhcGVyaD U8WVGrCX3igdeuZnUzRF8u ninuNbXwFF2mpga6VzLpDV 1hcmdiNzIwXGhlYWRlcnkw TMWiv4OdipfkHC3jF4Vtn4 Y3dQ2elQFmOGTkzZUsTtAw BFLjus8eiWFtOYpaXWI3BE QuvvVpd4Bue5mcPyMaoqWw X2bgD3QoKRZfRMXeGLLhVb CxioDwn4Rmz7QgdQQpmLo9 s8qfVZMbDJOoxVihx8epLT Q9BSWvG6O2xQOap5mpXGfi UTYjmNV9lrtbLDngNUOaks B1gyzcBXliWJKvuLM5jndc NBacSRViSoZ5okteYBhlHL ZwUKF2VMndw809JNM2SZqd YmtwYWdlXHBnbmNvbnRccG duZGVjXHBsYWluXHBsYWlu XGYwXGZzMjRccWxccGxhaW 2eBgMuWdEtRcdsZR2nLEJz K4xglVLlOQDaFRZfZ4npUx QjzH5mbWlbMDqpKqYbXvUb IwRSgLNvcZ98UTRyojB4RF Unc41lw5XohNhnrvZmQLLq IYqpR5y6HUVnAYDsICY7b0 Yhe0LoiT3uzR2joWeabN3o pJVblTT4qrehh6Wgh8WxV3 lhbCBzdGFpbnMuXHBsYWlu XGYxXGZzMjJcbGFuZzEwMz NcaGljaFxmMVxkYmNoXGYx KFqiV1guJnPzF2TaSBXcBh StwXLoG9qizGXmZJFpTXbo XGYxXGZzMjJcbGFuZzEwMz NcaGljaFxmMVxkYmNoXGYx YHdsX3ipVmAiQ3DmBKQzDq DlAwedW7jrUVKcKSykelOj rA4ay7MphqJ5EEFhmL7keL KioAu0f4myRBPoXKZ6jiul GCOnPFtxV23oQBA4ESYpoK GhNWFjy9EdVTRmLBY1WBL7 lRswTTT2CJGjhAbko5mnEH V2z9HgqXXtclzyQ2IzlVGe biwgaGVsaWNvYmFjdGVyXH BsYWluXGYxXGZzMjJcbGFu ZzEwMzNcaGljaFxmMVxkYm TdTUUoPTljJ1ttJgIvD3Tv NALuUnMnyWCcY4alvWZcDL BsYWluXGYxXGZzMjJcbGFu ZzEwMzNcaGljaFxmMVxkYm HiVJUaJSdfI4ceZxFpP2Kb LYBaJcYeG83ucVIqvPNFpF fhZTChMOunhJfiHVK1OMBT je2wz8GpVKUmmg56loYqg8 GuaWl3IAUeo592be4rpqS2 TRRqNRA0GEf9RZWcEAVxeF 2hCxV6fVVuIOZyGMW8EGI7 KEJon0I3TG7iMCAnSOQkEH GydaJlf3gtb0ciDINnQXZ2 ysVplT0eS4PhIIKzg2NdsV hlIHBhdGllbnRzIHNhbXBs ATTzsP77KOFnpWMmwDTuZP CuWLW7RRqtzB0aGuHFrpOk nq1buSDus0EquJq1JABuvb JxrfJnHSOdwjQtW66jyAIr bHFbh6wqhrZnrnWecPRxnF AaFRImXSS0BPh9MNIvAAqq bGFpblxmMVxmczIyXGxhbm gjFGPdMKlfM5rwZlTtCWQt qHrjLXcxh8VkGZYrSNXuYh yrqnChYCy5leLeXLLjujfz bGFpblxmMVxmczIyXGxhbm khLIVpTZlwQ3ggXrMsCFOr lFblDNosy1XdACSvZBKlKn zreoPuJNXugIyxrH3zZmHl VzPnTvkwEP2lOACtX6dozN OmRAZiDUPuP5rdSiBodB4i aFxmMVxjZjJcZnMyMlxsdH QmyPvqKROmxGlnyT7oBeSg OnTsApqvZR7vGBEaN6rcbN AcIOKuVMHuE8rtNiCymI3v aFxmMVxjZjJcZnMyMiBJbW 99ql1ygZD9i2IpRJ2et6Dw hTU2TVZcjmihIRtunCWeiE vbHbK0OJJchSRtJq6ttPVv XHC2SAUddQmwfqHRsV3nKX VrZVxwbGFpblxmMVxmczIy WOugodjyXFVkNYwxA4grQd AbLBMntMycFHile1FwLHRs WDKoXzllvqPvVKO4BhO9TI txZEFpnNshwH4nHfQoStLv DqfuGM2lFFUyJ5xbeKLrIW KlWHHlA6uuGzOkwN4vbIew GWydWvMbIjRqNrSoZU3qAG ekTDngC5YpfQYqMQSVRVAn w0cyA8zvHUYot8GyxG1tvI M6uLCgOREehUZ8KDFnOCR0 ZWxvcGVkIGFuZCBpdHMgcG KkRj7wuPUzO5YpV2xiuaWd lRGfwFR3uNEoBHnmylBnJT M1ODSfcS7hBZ6kOLMgwKEx JA7gyFCeUGQdABDcHPXaWM Xfs6FwNMTliv57OBGiFmok xJchMNBjRi9xYj3yXGOgex KrUYD2JrDYVD6swutxtMNf fSxbag7mAHndWAXCXFAxIM LdLKM2XMZrlA3bQCE0fVE4 YQY8W2qhK1tdWBWoeyHjPL 8dWIGejDXrkiRsNJouZB6x cKJbAVYvq9ZlnfbeZFKbTN S7HWY2PGtwZTPfNWAmVg8k GUTdwC4wD0IgOQZ5ciKia6 CjHhUJoPOexJ99hDCptb56 TSBjJRLuN3YrSHRuIIPqDR jvmcSeeHkoQMJhx33evRVb heKhf7CdvmAtERLrF6blOS UwlFOgoDZeq3IbgC7gnJUh yxSsYCZ0yIHtWFAvhA6nHH NcjYptKWCakL6xF7VdVZhz Pl7qUTMxeepcAY7bkv18RG 8tuwFeHE7liiCwLH29veXw SeGrNHy8PJwAMFeUGLh1MS LwbkVhoSIfuGSwOAVaqZ6x qEJmTg4nqKHxrUdyIOSxuG JfYJignDsxO6lsvkcdBTtz wRStd6CakE4emDM3IXN1hH 5nLlxwbGFpblxmMlxmczIy IPessmepIIRdVRmtY2sgJw QaKXFoaEjmExjwk1HuFBZu XGZzMjJccGFyXHBhcmRccG hplP7fFfFxInVoIHsgbUPh svnnCgvnxrK7RIKpnm5= Gross assessment was [facility] performed at ([facility], = 2777) Department of Pathology, [address] [place] [address], Technical component was [facility] performed at ([facility], = 2778) Department of Pathology, [address] [place] [address], Professional component [facility] was performed at ([facility], code = 2779) Department of Pathology, [address] [place] [address], [facility] [id number] 09:44:00Surgical Pathology Report Case: [id number] Authorizing Provider: Юлия Barraza MD Collected: 01/07/2020 08:32 AM Ordering Location: [address] Received: 01/07/2020 01:46 PM Service Pathologist: Isai Silva MD Specimens: A) - Stomach, Antrum, r/o H. Pylori atrophic gastritis B) -Biopsy, Gastric, body,r/o H. Pylori atrophic gastritis PART A GASTRIC ANTRUM BIOPSY:ANTRAL MUCOSA WITH NONSPECIFIC REACTIVE GASTROPATHY AND INTESTINAL METAPLASIA.NEGATIVE FOR DYSPLASIA OR INVASIVE CARCINOMA.WARTHIN STARRY STAIN FOR HELICOBACTER IS NEGATIVE.PART B GASTRIC BODY BIOPSY:GASTRIC MUCOSA WITH INTESTINAL METAPLASIA AND NEUROENDOCRINE HYPERPLASIA.NEGATIVE FOR DYSPLASIA OR INVASIVE CARCINOMA.WARTHIN STARRY STAIN FOR HELICOBACTER IS NEGATIVE.SEE DIAGNOSTIC COMMENT. Signing Pathologist Direct Phone Line: [phone] signed by Isai Silva MD on 01/09/2020 at 9:44 AMImmunohistochemical studies for gastrin performed on block B1 demonstrates scattered positivity. Neurodendocrine hyperplasia is identified by synaptophysin immunostain. Immunostains for helicobacter performed on blocks A1 and B1 are negative. Gastrin immunostain is negative on block A1 (antral biopsy). Synapthophysin immunostain performed on block A1 does not demonstrate neuroendocrine hyperplasia. 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 Correlation with endoscopic findings is required. [id number], 73329g3, 98636u2, [id number] diagnosis: Iron deficiency anemiaProcedure: upper endoscopy, biopsyA. Stomach, antrum, rule out H. Pylori, atrophic gastritis; B. Gastric body biopsy, rule out H. Pylori, atrophic gastritisA. Received in formalin labeled with the patient's name, accession number and "stomach antrum" is a joyce soft tissue fragment measuring 0.4 x 0.3 x 0.2 cm. The specimen is entirely submitted as A1. B. Received in formalin labeled with the patient's name, accession number and "gastric biopsy" are two fragments of joyce soft tissue measuring in aggregate 0.4x 0.2 x 0.2 cm. The specimen entirely submitted as B1. MH/plPerformed. The interpretation of this case included the use of immunohistochemistry or special stains.Block a1- warthin starry, synaptophysin, gastrin, helicobacterBlock b1- warthin starry, synaptophysin, gastrin, helicobacterControl Slides Examined: In-house known positive controls were evaluated along with the test tissue. These controlslides run alongside of the patients sample show appropriate staining. Internal positive and negative controls when available are evaluated Immunohistochemistry technical testing was performed at [facility], Pathology Laboratory where it was developed and its performance characteristics were determined. It has not been cleared or approved by the U.S. Food and Drug Administration. The FDA has determined that such clearance or approval is not necessary. The test is used for clinical purposes. It should not be regarded as investigational or for research. This laboratory is certified under the Clinical Laboratory Improvement Amendments of 1988 (CLIA-88) as qualified to perform high complexity clinical laboratory testing.[facility], Department of Pathology, [address] [place] [address], [facility], [address] [place] [address], [facility], [address] [place] [address] [place] [address], Agph[facility]je Leuko-Red RBC 2020-01-07 23:54:00 Test Item Value Reference Range Interpretation Comments CROSSMATCH (test code = 2264) COMPATIBLE Unit ABO (test code = B Pos [id number]) UNIT NUMBER (test code = [id number] 934-0) Status (test code = 5433079) TX_TIMEINCHART Blood Bank Product (test code RED BLOOD CELLS = 2263) PRODUCT CODE (test code = A2030J14 933-2) [facility]-Glucose [id number] 12:11:00 Test Item Value Reference Range Interpretation Comments POC-Glucose Meter (test 130 mg/dL 70-110 H : TE STED AT [facility] code = 1538) [address] [facility], 770 30: Morning Caregiver/Techni radha ID = [id number] for JAN PACHECO Lab Interpretation (test Abnormal code = 15430-6) [facility]-GLUCOSE [id number] 12:11:00 Test Item Value Reference Range Interpretation Comments POC-GLUCOSE METER 130 mg/dL 70-110 H : TESTED A T [facility] 6720 (BEAKER) (test code = KODY Kimo [facility], 1538) [address]: Morning Caregiver/Techni radha ID = [id number] for JAN GAMBOA Basic metabolic [id number] 07:10:00 Test Item Value Reference Range Interpretation Comments Sodium (test code = 137 meq/L 774-154 7349-2) Potassium (test 4.2 meq/L 3.5-5.1 code = 2823-3) Chloride (test code 105 meq/L 98-107 = 2075-0) CO2 (test code = 26 meq/L 22-29 2027-9) BUN (test code = 15 mg/dL 7- 3094-0) Creatinine (test 0.95 mg/dL 0.57-1.25 code = 2160-0) Glucose (test code 98 mg/dL 70-105 = 2345-7) Calcium (test code 9.1 mg/dL 8.4-10.2 = 30268-7) EGFR (test code = 56 mL/min/1.73 [place] [address]-5) NOT ACCURATE CREATININE CLEARANCE IN PREDICTING GLOMERULAR FILTRATION RATE . ESTIMATED GFR I S NOT APPLICABLE FOR DIALYSIS PATIEN TS. DONELL (test code = Morning Caregiver ID - BS DONELL) [facility] [id number] 07:10:00 Test Item Value Reference Range Interpretation Comments SODIUM (BEAKER) 137 meq/L 136-145 (test code = 381) POTASSIUM (BEAKER) 4.2 meq/L 3.5-5.1 (test code = 379) CHLORIDE (BEAKER) 105 meq/L 98-107 (test code = 382) CO2 (BEAKER) (test 26 meq/L 22-29 code = 355) BLOOD UREA NITROGEN 15 mg/dL 7-21 (BEAKER) (test code = 354) CREATININE (BEAKER) 0.95 mg/dL 0.57-1.25 (test code = 358) GLUCOSE RANDOM 98 mg/dL 70-105 (BEAKER) (test code = 652) CALCIUM (BEAKER) 9.1 mg/dL 8.4-10.2 (test code = 697) EGFR (BEAKER) (test 56 mL/min/1.73 ESTIMA RENETTA GFR IS code = 1092) sq m NOT ACCURATE CREATININE CLEARANCE IN PREDICTING GLOMERULAR FILTRATION RATE . ESTIMATED GFR I S NOT APPLICABLE FOR DIALYSIS PATIEN TS. Morning Caregiver ID - BSTSH/Free T4 If [id number] 07:09:00 Test Item Value Reference Range Interpretation Comments TSH (test code = 2.664 0.350- 4.940 uIU/mL 53188-6) DONELL (test code = DONELL) Morning Caregiver ID - EDASI Lab Interpretation (test Normal code = 32778-0) [facility] T4 IF [id number] 07:09:00 Test Item Value Reference Range Interpretation Comments THYROID STIMULATING HORMONE 2.664 uIU/mL 0.350-4.940 (BEAKER) (test code = 772) Morning Caregiver ID - EDASICBC with platelet count + automated [id number] 06:32:00 Test Item Value Reference Range Interpretation Comments WBC (test code = 6690-2) 5.7 3.5- 10.5 K/L RBC (test code = 789-8) 3.35 3.93- 5.22 M/L L MCHC (test code = 786-4) 29.1 32.2- 35.5 GM/DL L Hematocrit (test code = 4544-3) 27.8 % 34.1-44.9 L MCV (test code = 787-2) 83.0 fL 79.4-94.8 MCH (test code = 785-6) 24.2 pg 25.6-32.2 L RDW (test code = 788-0) 17.1 % 11.7-14.4 H Platelets (test code = 777-3) 510 150- 450 K/CU MM H MPV (test code = 57213-0) 10.7 fL 9.4-12.3 nRBC (test code = 413) 0 0- 0 /100 WBC % Neutros (test code = 429) 57 % % Lymphs (test code = 430) 24 % % Monos (test code = 431) 12 % % Eos (test code = 432) 3 % % Baso (test code = 437) 4 % # Neutros (test code = 670) 3.23 1.56- 6.13 K/L # Lymphs (test code = 414) 1.34 1.18- 3.74 K/L # Monos (test code = 415) 0.69 0.24- 0.36 K/L H # Eos (test code = 416) 0.16 0.04- 0.36 K/L # Baso (test code = 417) 0.22 0.01- 0.08 K/L H Immature Granulocytes-Relative 0 % 0-1 (test code = 2801) Lab Interpretation (test code = Abnormal 70561-0) [facility] W/PLT COUNT & AUTO [id number] 06:32:00 Test Item Value Reference Range Interpretation Comments WHITE BLOOD CELL COUNT (BEAKER) 5.7 K/ L 3.5-10.5 (test code = 775) RED BLOOD CELL COUNT (BEAKER) 3.35 M/ L 3.93-5.22 L (test code = 761) HEMOGLOBIN (BEAKER) (test code = 8.1 GM/DL 11.2-15.7 L 410) HEMATOCRIT (BEAKER) (test code = 27.8 % 34.1-44.9 L 411) MEAN CORPUSCULAR VOLUME (BEAKER) 83.0 fL 79.4-94.8 (test code = 753) MEAN CORPUSCULAR HEMOGLOBIN 24.2 pg 25.6-32.2 L (BEAKER) (test code = 751) MEAN CORPUSCULAR HEMOGLOBIN CONC 29.1 GM/DL 32.2-35.5 L (BEAKER) (test code = 752) RED CELL DISTRIBUTION WIDTH 17.1 % 11.7-14.4 H (BEAKER) (test code = 412) PLATELET COUNT (BEAKER) (test 510 K/CU MM 150-450 H code = 756) MEAN PLATELET VOLUME (BEAKER) 10.7 fL 9.4-12.3 (test code = 754) NUCLEATED RED BLOOD CELLS 0 /100 WBC 0-0 (BEAKER) (test code = 413) NEUTROPHILS RELATIVE PERCENT 57 % (BEAKER) (test code = 429) LYMPHOCYTES RELATIVE PERCENT 24 % (BEAKER) (test code = 430) MONOCYTES RELATIVE PERCENT 12 % (BEAKER) (test code = 431) EOSINOPHILS RELATIVE PERCENT 3 % (BEAKER) (test code = 432) BASOPHILS RELATIVE PERCENT 4 % (BEAKER) (test code = 437) NEUTROPHILS ABSOLUTE COUNT 3.23 K/ L 1.56-6.13 (BEAKER) (test code = 670) LYMPHOCYTES ABSOLUTE COUNT 1.34 K/ L 1.18-3.74 (BEAKER) (test code = 414) MONOCYTES ABSOLUTE COUNT (BEAKER) 0.69 K/ L 0.24-0.36 H (test code = 415) EOSINOPHILS ABSOLUTE COUNT 0.16 K/ L 0.04-0.36 (BEAKER) (test code = 416) BASOPHILS ABSOLUTE COUNT (BEAKER) 0.22 K/ L 0.01-0.08 H (test code = 417) IMMATURE GRANULOCYTES-RELATIVE 0 % 0-1 PERCENT (BEAKER) (test code = 2801) POCT-GLUCOSE [id number] 05:59:00 Test Item Value Reference Range Interpretation Comments POC-GLUCOSE METER 106 mg/dL 70-110 : TESTED A T [facility] (BEAKER) (test code = KODY [place], 1538) [address]: Morning Caregiver/Techni radha ID = [id number] for HOWELL, DIMITRI TTE POCT-GLUCOSE [id number] 00:23:00 Test Item Value Reference Range Interpretation Comments POC-GLUCOSE METER 105 mg/dL 70-110 : TESTED A T [facility] (BEAKER) (test code = KODY Malin [place], 1538) [address]: Morning Caregiver/Techni radha ID = [id number] for HOWELL, DIMITRI TTE POCT-GLUCOSE [id number] 18:47:00 Test Item Value Reference Range Interpretation Comments POC-GLUCOSE METER 99 mg/dL 70-110 : TESTED A T [facility] (BEAKER) (test code = KODY Malin [facility], 1538) [address]: Morning Caregiver/Techni radha ID = [id number] for FRANSISCO SCOTT Hemoglobin and [id number] 17:26:00 Test Item Value Reference Range Interpretation Comments Hemoglobin (test code = 7.9 11.2- 15.7 GM/DL L 786-4) Hematocrit (test code = 26.6 % 34.1-44.9 L 4544-3) DONELL (test code = DONELL) Morning Caregiver ID - [id number] Lab Interpretation (test Abnormal code = 71909-7) [facility]HEMOGLOBIN AND [id number] 17:26:00 Test Item Value Reference Range Interpretation Comments HEMOGLOBIN (BEAKER) (test code = 7.9 GM/DL 11.2-15.7 L 410) HEMATOCRIT (BEAKER) (test code = 26.6 % 34.1-44.9 L 411) Morning Caregiver ID - [id number]-CoV2/RT-PCR (Asymptomatic ONLY)2020-01-06 17:03:00 Test Item Value Reference Range Interpretation Comments SARS-COV2/RT-PCR Negative Not Detected, (test code = Negative, See 86623-7) external report for linked test SARS-COV-2 [facility] (test code = 64059-9) DONELL (test code = Negative result for this DONELL) test determines that SARS-CoV-2 RNA was not present in the [...] of the Act. Fact Sheet for Healthcare Providers:https://www.[employer].com/sites/default/f taina/product/documents/F act_Sheet_HC_Providers_L bue_WVCA-WnQ-2.pdf Fact Sheet for Healthcare Patients:https://www.[employer]/sites/default/fi les/product/documents/Fa ct_Sheet_Patients_Lyra_S ARS-CoV-2.pdf Performing Laboratory:[facility], [place] [address] [place], [place] [address]ARS-COV2/RT-PCR ([facility])2020-01-06 17:03:00 Test Item Value Reference Range Interpretation Comments SARS-COV2/RT-PCR (test Negative Not Detected, Negative, code = 2733526) See external report for linked test SARS-COV-[address] [facility] (test code = 3259071) Negative result for this test determines that SARS-CoV-2 RNA was not present in the specimen above the Limit of Detection (LOD). However, Negative results do not preclude SARS-CoV-2 infection and should not be used as the sole basis for treatment or patient management decisions. Negative results mustbe combined with clinical observations, patient history, and epidemiological information. A false negative result may occur if a specimen is improperly collected, transported or handled. A false negative result should be considered if patient's recent exposures or clinical presentation indicate that COVID-19 (SARS-CoV-2) is likely and diagnostic tests for other causes of illness are negative. Re-testing should be considered in cases of suspected false negatives.The limit of detection for this assay is 800 copies/mL.This SARS CoV-2 test is a real-time RT-PCR test intended for the qualitative detection of nucleic acid from SARS-CoV-2 in a nasopharyngeal swab specimen collected from individuals susp ected of COVID-19 by their healthcare provider.This test has not been Food and Drug [...] is revoked under Section 564(g) of the Act.Fact Sheet for Healthcare Providers:https://www.[employer].com/sites/default/files/product/documents/Fact_Shee h_LD_Nlmjmdifx_Srqk_CJSI-TzW-4.pdfFact Sheet for Healthcare Patients:https://www.[employer].com/sites/default/files/product/ documents/Cabg_Mbzfd_Njxauypz_Qbzn_ZWSW-ZbD-7.pdfPerforming Laboratory:[facility] [place], [place] [address]ch[address].[place], [place] [address]Hathjej B12 and [id number] 11:40:00 Test Item Value Reference Range Interpretation Comments Vitamin B12 (test code = 1029 pg/mL 213-816 H 2-9) Folate (test code = 2284-8) >20.00 >=7.00 ng/mL DONELL (test code = DONELL) Morning Caregiver ID - LM Lab Interpretation (test Abnormal code = 81330-9) [facility] AND [id number] 11:40:00 Test Item Value Reference Range Interpretation Comments VITAMIN B12 (BEAKER) (test code = 1029 pg/mL 213-816 H 774) FOLATE (BEAKER) (test code = 362) > ng/mL >=7.00 Morning Caregiver ID - [id number] 11:00:00 Test Item Value Reference Range Interpretation Comments Ferritin (test code = 6.72 ng/mL 5-275 2276-4) DONELL (test code = DONELL) Morning Caregiver ID - LM Lab Interpretation (test Normal code = 96879-1) [facility] Test Item Value Reference Range Interpretation Comments FERRITIN (BEAKER) (test code = 6.72 ng/mL 5.00-275.00 361) Morning Caregiver ID - LMABORH, [id number] 10:00:00 Test Item Value Reference Range Interpretation Comments ABO Grouping (test code = 2588) B Rh Factor (test code = 2589) POS [facility], [id number] 09:39:00 Test Item Value Reference Range Interpretation Comments Ab Scrn (test code = 890-4) NEGATIVE done on echo [facility], TIBC, % sat. (without ferritin)2020-01-06 09:30:00 Test Item Value Reference Range Interpretation Comments Iron (test code = 2498-4) 18.0 ug/dL 40-160 L TIBC (test code = 2500-7) 498 ug/dL 250-450 H Iron % Saturation (test code 4 % 20-55 L = 2502-3) DONELL (test code = DONELL) Morning Caregiver ID - LM Lab Interpretation (test Abnormal code = 65670-5) [facility], [facility]BC, % SAT. (WITHOUT FERRITIN)2020-01-06 09:30:00 Test Item Value Reference Range Interpretation Comments IRON (BEAKER) (test code = 547) 18.0 ug/dL 40.0-160.0 L TOTAL IRON BINDING CAPACITY 498 ug/dL 250-450 H (BEAKER) (test code = 769) IRON % SATURATION (2) (BEAKER) 4 % 20-55 L (test code = 2590) Morning Caregiver ID - LMHepatic function [id number] 05:42:00 Test Item Value Reference Range Interpretation Comments Protein, Total (test code 6.9 6.0- 8.3 gm/dL = 2885-2) Albumin (test code = 4.0 g/dL 3.5-5 60408-7) Total Bilirubin (test code 0.3 mg/dL 0.2-1.2 = 1974-2) Bilirubin, Direct (test 0.2 mg/dL 0.1-0.5 code = 1967-7) Alkaline Phosphatase (test 77 U/L 40-150 code = 6768-6) AST (test code = 1920-8) 19 U/L 5-34 ALT (test code = 1742-6) 14 U/L 6-55 DONELL (test code = DONELL) Morning Caregiver ID - JAMESON W Lab Interpretation (test Normal code = 09726-2) [facility]2020-07-21 05:42:00 Test Item Value Reference Range Interpretation Comments Magnesium (test code = 2.2 mg/dL 1.6-2.6 11936-3) DONELL (test code = DONELL) Morning Caregiver ID Albert BARBA W Lab Interpretation (test Normal code = 64958-9) [facility]2020-07-21 05:42:00 Test Item Value Reference Range Interpretation Comments MAGNESIUM (BEAKER) (test code = 2.2 mg/dL 1.6-2.6 627) Morning Caregiver ID - JAMESON WBASIC METABOLIC [id number] 05:42:00 Test Item Value Reference Range Interpretation Comments SODIUM (BEAKER) 140 meq/L 136-145 (test code = 381) POTASSIUM (BEAKER) 4.6 meq/L 3.5-5.1 (test code = 379) CHLORIDE (BEAKER) 106 meq/L 98-107 (test code = 382) CO2 (BEAKER) (test 27 meq/L 22-29 code = 355) BLOOD UREA NITROGEN 21 mg/dL 7-21 (BEAKER) (test code = 354) CREATININE (BEAKER) 0.86 mg/dL 0.57-1.25 (test code = 358) GLUCOSE RANDOM 100 mg/dL 70-105 (BEAKER) (test code = 652) CALCIUM (BEAKER) 9.1 mg/dL 8.4-10.2 (test code = 697) EGFR (BEAKER) (test 63 mL/min/1.73 ESTIMA RENETTA GFR IS code = 1092) sq m NOT ACCURATE CREATININE CLEARANCE IN PREDICTING GLOMERULAR FILTRATION RATE . ESTIMATED GFR I S NOT APPLICABLE FOR DIALYSIS PATIEN TS. Morning Caregiver ID Albert BARBA WHEPATIC FUNCTION [id number] 05:42:00 Test Item Value Reference Range Interpretation Comments TOTAL PROTEIN (BEAKER) (test code = 6.9 gm/dL 6.0-8.3 770) ALBUMIN (BEAKER) (test code = 1145) 4.0 g/dL 3.5-5.0 BILIRUBIN TOTAL (BEAKER) (test code 0.3 mg/dL 0.2-1.2 = 377) BILIRUBIN DIRECT (BEAKER) (test 0.2 mg/dL 0.1-0.5 code = 706) ALKALINE PHOSPHATASE (BEAKER) (test 77 U/L 40-150 code = 346) AST (SGOT) (BEAKER) (test code = 19 U/L 5-34 353) ALT (SGPT) (BEAKER) (test code = 14 U/L 6-55 347) Morning Caregiver ID Albert BARBA WProthrombin time/[id number] 05:32:00 Test Item Value Reference Range Interpretation Comments Protime (test code = 13.8 11.9- 14.2 5902-2) seconds INR (test code = 1.1 <=5.9 6301-6) DONELL (test code = DONELL) Effective 11/13/2018: PT Reference Range ChangeNew: 11.9-14.2 Previous: 11.7-14.7 RECOMMENDED COUMADIN/WARFARIN INR THERAPY RANGESSTANDARD DOSE: 2.0-3.0 Includes: PROPHYLAXIS for venous thrombosis, systemic embolization; TREATMENT for venous thrombosis and/or pulmonary embolus.HIGH RISK: Target INR is 2.5-3.5 for patients wiht mechanical heart valves. Lab Interpretation Normal (test code = 35104-0) [facility]PROTHROM[facility]/[id number] 05:32:00 Test Item Value Reference Range Interpretation Comments PROTIME (BEAKER) (test code = 13.8 seconds 11.9-14.2 759) INR (BEAKER) (test code = 370) 1.1 <=5.9 Effective 11/13/2018: PT Reference Range ChangeNew: 11.9-14.2 Previous: 11.7- 14.7RECOMMENDED COUMADIN/WARFARIN INR THERAPY RANGESSTANDARD DOSE: 2.0-3.0 Includes: PROPHYLAXIS for venous thrombosis, systemic embolization; TREATMENT for venous thrombosis and/or pulmonary embolus.HIGH RISK: Target INR is2.5-3.5 for patients wiht mechanical heart valves.CBC W/PLT COUNT & AUTO [id number] 05:15:00 Test Item Value Reference Range Interpretation Comments WHITE BLOOD CELL COUNT (BEAKER) 7.9 K/ L 3.5-10.5 (test code = 775) RED BLOOD CELL COUNT (BEAKER) 2.86 M/ L 3.93-5.22 L (test code = 761) HEMOGLOBIN (BEAKER) (test code = 6.8 GM/DL 11.2-15.7 L 410) HEMATOCRIT (BEAKER) (test code = 23.4 % 34.1-44.9 L 411) MEAN CORPUSCULAR VOLUME (BEAKER) 81.8 fL 79.4-94.8 (test code = 753) MEAN CORPUSCULAR HEMOGLOBIN 23.8 pg 25.6-32.2 L (BEAKER) (test code = 751) MEAN CORPUSCULAR HEMOGLOBIN CONC 29.1 GM/DL 32.2-35.5 L (BEAKER) (test code = 752) RED CELL DISTRIBUTION WIDTH 17.1 % 11.7-14.4 H (BEAKER) (test code = 412) PLATELET COUNT (BEAKER) (test 514 K/CU MM 150-450 H code = 756) MEAN PLATELET VOLUME (BEAKER) 10.1 fL 9.4-12.3 (test code = 754) NUCLEATED RED BLOOD CELLS 0 /100 WBC 0-0 (BEAKER) (test code = 413) NEUTROPHILS RELATIVE PERCENT 64 % (BEAKER) (test code = 429) LYMPHOCYTES RELATIVE PERCENT 20 % (BEAKER) (test code = 430) MONOCYTES RELATIVE PERCENT 10 % (BEAKER) (test code = 431) EOSINOPHILS RELATIVE PERCENT 3 % (BEAKER) (test code = 432) BASOPHILS RELATIVE PERCENT 3 % (BEAKER) (test code = 437) NEUTROPHILS ABSOLUTE COUNT 5.08 K/ L 1.56-6.13 (BEAKER) (test code = 670) LYMPHOCYTES ABSOLUTE COUNT 1.58 K/ L 1.18-3.74 (BEAKER) (test code = 414) MONOCYTES ABSOLUTE COUNT (BEAKER) 0.79 K/ L 0.24-0.36 H (test code = 415) EOSINOPHILS ABSOLUTE COUNT 0.22 K/ L 0.04-0.36 (BEAKER) (test code = 416) BASOPHILS ABSOLUTE COUNT (BEAKER) 0.23 K/ L 0.01-0.08 H (test code = 417) IMMATURE GRANULOCYTES-RELATIVE 0 % 0-1 PERCENT (BEAKER) (test code = 2801)
[2020-07-14] MEDS ORDERED: Ringers Lactate 1,000 ML IV ONE (08:47)
[2020-07-14] MEDS ORDERED: propofoL 200 MG/20 ML VIAL IV ONE (09:35)
--- NOTE | 2020-07-14 10:01 | ENDO RPT ---
[address], [address] EGD PROCEDURE REPORT EXAM DATE: 07/14/2020 PATIENT NAME: Kiana Walters MR#: [id number] BIRTHDATE: 1935 ATTENDING: Jacoby Hansen Dr STATUS: outpatient HYDRAULIC PRESS SERVICER: Sherri Rogers RN, Lavern Virgen RN, and Aida Humphrey CST INDICATIONS: The patient is a 85 yr old Female here for an EGD due to history of small bowel a-v malformations and iron deficiency anemia PROCEDURE PERFORMED: EGD with biopsy MEDICATIONS: Per Anesthesia. TOPICAL ANESTHETIC: none CONSENT: The patient understands the risks and benefits of the procedure and understands that these risks include, but are not limited to: sedation, allergic reaction, infection, perforation and/or bleeding. Alternative means of evaluation and treatment include, among others: physical exam, x-rays, and/or surgical intervention. The patient elects to proceed with this endoscopic procedure. DESCRIPTION OF PROCEDURE: During intra-op preparation period all mechanical medical equipment was checked for proper function. Hand hygiene and appropriate measures for infection prevention was taken. Procedure, possible complications, and alternatives including but not limited to the possibility of bleeding, perforation, tear, infection, sepsis, need for surgery, need for blood transfusion, and anesthesia related complications were explained to the patient. After the risks, benefits and alternatives of the procedure were thoroughly explained, Informed consent was verified, confirmed and timeout was successfully executed by the treatment team. The patient was placed in the left lateral position. The patient was anesthetized with topical anesthesia. Through the anesthetized oropharyngeal area, the scope was passed without any difficulty. The [id number] ([id number]) and [id number] ([id number]) endoscope was introduced through the mouth and advanced to the third portion of the duodenum. Retroflexed views revealed a moderate sized hiatal hernia. The gastroscope was then slowly withdrawn and removed. A moderate sized hiatal hernia was found. Moderate atrophic gastritis was found in the body and the antrum of the stomach. Multiple biopsies were obtained and sent to pathology. A 3 mm sessile polyp was found in the body of the stomach. With jumbo forceps, a biopsy was obtained and sent to pathology. No AVMs seen in the duodenum. ADVERSE EVENTS: persistent coughing with hypoxemia with O2 saturation to 70% 07/14/2020 9:45 AM, quickly recovered by anesthesia. IMPRESSIONS: 1. Moderate sized hiatal hernia 2. Moderate atrophic gastritis in the body and the antrum of the stomach, s/p biopsies 3. 3 sessile polyp in the body of the stomach, s/p biopsy 4. No AVMs seen in the duodenum RECOMMENDATIONS: 1. await biopsy results 2. acid suppression therapy REPEAT EXAM: Jacoby Hansen Dr eSigned: Jacoby Hansen Dr 07/14/2020 10:00 AM cc: Kalyan Middleton CPT CODES: ICD9 CODES: PATIENT NAME: Kiana Walters MR#: [id number]
[2020-07-14] MEDS ORDERED: CEFAZOLIN/SWI 2gm 2 GM/20 ML SYR ONE (12:15)
[2020-07-14 13:01] VITALS: TEMP 98.5
[2020-07-14 13:05] VITALS: BP 142/65; O2SAT 99
== END 2020-07-14 10:30 | disposition home or self-care (01) ==
LOC: OR 08:11
PROVIDERS: ATTEND Internal Medicine Gastroenterology
PROC: 0D568ZZ Destruction of Stomach, Via Natural or Artificial Opening Endoscopic (ICD-10-PCS; 2020-07-14)
PROC: 0DB78ZX Excision of Stomach, Pylorus, Via Natural or Artificial Opening Endoscopic, Diagnostic (ICD-10-PCS; principal; 2020-07-14 09:30)
DX: Q27.33 Arteriovenous malformation of digestive system vessel (principal); K44.9 Diaphragmatic hernia without obstruction or gangrene; K29.40 Chronic atrophic gastritis without bleeding; K31.7 Polyp of stomach and duodenum; D50.9 Iron deficiency anemia, unspecified; Z20.822 Contact with and (suspected) exposure to COVID-19
CPT/HCPCS: 88312; 88305; 43239; 43270; U0002; J2704; J0690; J7120

== ENCOUNTER 2021-10-12 09:04 | Day surgery (SDC) | payer OTHER, MEDICARE ==
[2021-10-12] MEDS ORDERED: Ringers Lactate 1,000 ML IV ONE (09:55)
[2021-10-12] MEDS ORDERED: propofoL 200 MG/20 ML VIAL IV ONE (10:54)
[2021-10-12] MEDS ORDERED: LIDOCAINE 1% MPF 5 ML VIAL ONE (10:54)
--- NOTE | 2021-10-12 11:23 | ENDO RPT ---
[address], [address] EGD PROCEDURE REPORT EXAM DATE: 10/12/2021 PATIENT NAME: Kiana Walters MR#: [id number] BIRTHDATE: 1935 ATTENDING: Jacoby Hansen Dr STATUS: outpatient FERMENTER: Emily Perea RN and Katia Godwin INDICATIONS: The patient is a 86 yr old Female here for an EGD due to anemia PROCEDURE PERFORMED: EGD with biopsy MEDICATIONS: Per Anesthesia. TOPICAL ANESTHETIC: none CONSENT: The patient understands the risks and benefits of the procedure and understands that these risks include, but are not limited to: sedation, allergic reaction, infection, perforation and/or bleeding. Alternative means of evaluation and treatment include, among others: physical exam, x-rays, and/or surgical intervention. The patient elects to proceed with this endoscopic procedure. DESCRIPTION OF PROCEDURE: During intra-op preparation period all mechanical medical equipment was checked for proper function. Hand hygiene and appropriate measures for infection prevention was taken. Procedure, possible complications, and alternatives including but not limited to the possibility of bleeding, perforation, tear, infection, sepsis, need for surgery, need for blood transfusion, and anesthesia related complications were explained to the patient. After the risks, benefits and alternatives of the procedure were thoroughly explained, Informed consent was verified, confirmed and timeout was successfully executed by the treatment team. The patient was placed in the left lateral position. The patient was anesthetized with topical anesthesia. Through the anesthetized oropharyngeal area, the scope was passed without any difficulty. The Pentax [id number] ([id number]) endoscope was introduced through the mouth and advanced to the third portion of the duodenum. Retroflexed views revealed a large hiatal hernia. The gastroscope was then slowly withdrawn and removed. A large hiatal hernia was found (8 cm, GEJ at 37 cm, DI at 45 cm from the gums). Moderate atrophic gastritis was found in the total stomach. Multiple biopsies were obtained and sent to pathology. Small bowel biopsies obtained with history of unexplained anemia. ADVERSE EVENTS: There were no complications. IMPRESSIONS: 1. Large hiatal hernia (8 cm, GEJ at 37 cm, DI at 45 cm from the gums) 2. Moderate atrophic gastritis in the total stomach (antrum >body>fundus), s/p biopsies 3. Small bowel biopsies obtained with history of unexplained anemia RECOMMENDATIONS: 1. await biopsy results 2. acid suppression therapy REPEAT EXAM: Jacoby Hansen Dr eSigned: Jacoby Hansen Dr 10/12/2021 11:22 AM cc: Kalyan Middleton M.D. CPT CODES: ICD9 CODES: PATIENT NAME: Kiana Walters MR#: [id number]
[2021-10-12 12:10] VITALS: BP 141/91; TEMP 97.8; O2SAT 98
== END 2021-10-12 12:07 | disposition home or self-care (01) ==
LOC: OR 09:04
PROVIDERS: ATTEND Internal Medicine Gastroenterology
PROC: 0DB88ZX Excision of Small Intestine, Via Natural or Artificial Opening Endoscopic, Diagnostic (ICD-10-PCS; 2021-10-12)
PROC: 0DB68ZX Excision of Stomach, Via Natural or Artificial Opening Endoscopic, Diagnostic (ICD-10-PCS; principal; 2021-10-12 10:45)
DX: K29.50 Unspecified chronic gastritis without bleeding (principal); D75.839 Thrombocytosis, unspecified; K44.9 Diaphragmatic hernia without obstruction or gangrene; I10 Essential (primary) hypertension; F32.A Depression, unspecified; I48.91 Unspecified atrial fibrillation; Z20.822 Contact with and (suspected) exposure to COVID-19
CPT/HCPCS: 88312; 88305; 43239; U0003; J2704; J7120